=== PATIENT | male | born 1935 | race Caucasian/White ===

== ENCOUNTER 2019-05-01 10:37 | Emergency (ER) | payer MEDICARE, OTHER | END 2019-05-01 14:11 | disposition home or self-care (01) | LOC: ER FS 10:37 ==

== ENCOUNTER 2019-05-14 15:16 | Emergency (ER) | payer MEDICARE ==
[~2019-05-14] VITALS: Ht 177.8 cm; Wt 90.7 kg
[~2019-05-14 15:16] MED LIST: CLOP75TA28; LISI-556; PRAV20TA3; TAMSULOSIN
--- NOTE | 2019-05-14 15:55 | ED Chest Pain ---
General Chief Complaint: Chest Wall Stated Complaint: RIB PAIN, PT FELL Source: patient, family Exam Limitations: no limitations History of Present Illness Date Seen by Provider: May 14, 2019 Time Seen by Provider: 15:51 Initial Comments Patient presents with his and complaining of left-sided chest pain after recent fall. Patient seen in this ER myself on 01 May for similar incident after a fall. Was sent home after workup and given fall precautions. Patient admits he fell again recently landing on his left chest and does have some bruising on his left chest as well and pain in the ribs of this area Allergies and Home Medications Allergies Coded Allergies: No Known Drug Allergies (Unverified , 05/01/19) Patient Home Medication List Home Medication List Reviewed: Yes Review of Systems Review of Systems Constitutional: No dizziness, No fever, No malaise, No weakness Respiratory: Denies Cough, Denies Orthopnea, Denies Shortness of Air, Denies SOA With Exertion, Denies SOA at Rest, Denies Stridor, Denies Wheezing Cardiovascular: Chest Pain (left lower and lateral chest wall); Denies Edema, Denies Lightheadedness, Denies Palpitations, Denies Syncope Musculoskeletal: No back pain, No joint pain, No joint swelling, No muscle pain, No muscle stiffness Skin: see HPI, other (bruising extremities. bruising chest wall left side) Past Ylxayju-Rmpokl-Limflw Hx Patient Social History Type Used: Cigarettes Former Smoker, Quit: Sep 08, 2010 2nd Hand Smoke Exposure: No Recent Foreign Travel: No Contact w/Someone Who Travel: No Recent Hopitalizations: No Seasonal Allergies Seasonal Allergies: No Past Medical History Surgeries: No Respiratory: Yes COPD Cardiac: Yes Hypertension Neurological: Yes Stroke, TIA Genitourinary: Yes Benign Prostatic Hyperpl Gastrointestinal: No Musculoskeletal: No Endocrine: No HEENT: No Cancer: No Psychosocial: No Integumentary: No Physical Exam Vital Signs Vital Signs - First Documented 05/14/19 15:20 Temp 98.2 Pulse 70 Resp 20 B/P (MAP) 194/80 (118) Capillary Refill : Height, Weight, BMI Height: 5'9.00" Weight: 200lbs. oz. [id number]; BMI Method:Stated General Appearance: No Apparent Distress, WD/WN; No Anxious, No Cachetic, No Mild Distress Neck: Full Range of Motion, Normal Inspection, Non Tender, Supple; No JVD Respiratory: Lungs Clear, Normal Breath Sounds; No Respiratory Distress; Other (tenderness left lower lateral chest wall in area of bruising) Cardiovascular: Regular Rate, Rhythm, No Murmur, Normal Peripheral Pulses Gastrointestinal: Non Tender, Soft; No Distended, No Guarding Extremity: Normal Capillary Refill, Normal Inspection, Normal Range of Motion, Non Tender, No Calf Tenderness, No Pedal Edema; No Pedal Edema, No Pelvis Stable Skin: Normal Color, Warm/Dry, Ecchymosis Progress/Results/Core Measures Results/Orders Lab Results Laboratory Tests Test 05/14/19 15:48 Range/Units White Blood Count 7.0 4.3-11.0 10^3/uL Red Blood Count 5.09 4.35-5.85 10^6/uL Hemoglobin 14.8 13.3-17.7 G/DL Hematocrit 46 40-54 % Mean Corpuscular Volume 91 80-99 FL Mean Corpuscular Hemoglobin 29 25-34 PG Mean Corpuscular Hemoglobin Concent 32 32-36 G/DL Red Cell Distribution Width 13.5 10.0-14.5 % Platelet Count 225 130-400 10^3/uL Mean Platelet Volume 9.3 7.4-10.4 FL Neutrophils (%) (Auto) 63 42-75 % Lymphocytes (%) (Auto) 23 12-44 % Monocytes (%) (Auto) 9 0-12 % Eosinophils (%) (Auto) 4 0-10 % Basophils (%) (Auto) 1 0-10 % Neutrophils # (Auto) 4.4 1.8-7.8 X 10^3 Lymphocytes # (Auto) 1.6 1.0-4.0 X 10^3 Monocytes # (Auto) 0.7 0.0-1.0 X 10^3 Eosinophils # (Auto) 0.3 0.0-0.3 10^3/uL Basophils # (Auto) 0.0 0.0-0.1 10^3/uL Sodium Level 140 135-145 MMOL/L Potassium Level 4.1 3.6-5.0 MMOL/L Chloride Level 97 L 98-107 MMOL/L Carbon Dioxide Level 29 21-32 MMOL/L Anion Gap 14 5-14 MMOL/L Blood Urea Nitrogen 10 7-18 MG/DL Creatinine 0.70 0.60-1.30 MG/DL Estimat Glomerular Filtration Rate > 60 BUN/Creatinine Ratio 14 Glucose Level 113 H 70-105 MG/DL Calcium Level 9.4 8.5-10.1 MG/DL Corrected Calcium 9.2 8.5-10.1 MG/DL Total Bilirubin 0.3 0.1-1.0 MG/DL Aspartate Amino Transf (AST/SGOT) 18 5-34 U/L Alanine Aminotransferase (ALT/SGPT) 16 0-55 U/L Alkaline Phosphatase 79 40-136 U/L Troponin I < 0.30 <0.30 NG/ML Total Protein 6.9 6.4-8.2 GM/DL Albumin 4.2 3.2-4.5 GM/DL My Orders Orders - ROVENSTMICHAEL VALLES DO Ed Iv/Invasive Line Start (05/14/19 15:48) Cbc With Automated Diff (05/14/19 15:48) Comprehensive Metabolic Panel (05/14/19 15:48) Troponin I (05/14/19 15:48) Ekg Tracing (05/14/19 15:48) Ct Angio Chest W (05/14/19 15:48) Ns Iv 1000 Ml (Sodium Chloride 0.9%) (05/14/19 16:00) Iohexol Injection (Omnipaque 350 Mg/Ml 1 (05/14/19 16:15) Received Contrast (Hold Metformin- Contr (05/14/19 16:15) Sodium Chloride Flush (Catheter Flush Sy (05/14/19 16:15) Ns (Ivpb) (Sodium Chloride 0.9% Ivpb Bag (05/14/19 16:15) Medications Given in ED Current Medications Medications Dose Ordered Sig/Glenny Route Start Time Stop Time Status Last Admin Dose Admin Iohexol 125 ml ONCE ONCE IV 05/14/19 16:15 05/14/19 16:16 DC 05/14/19 16:29 125 ML Sodium Chloride 10 ml NEEDED PRN IV 05/14/19 16:15 05/14/19 16:29 10 ML Sodium Chloride 100 ml ONCE ONCE IV 05/14/19 16:15 05/14/19 16:16 DC 05/14/19 16:29 100 ML Vital Signs/I&O 05/14/19 15:20 Temp 98.2 Pulse 70 Resp 20 B/P (MAP) 194/80 (118) Initial ECG Impression Date: May 14, 2019 Initial ECG Impression Time: 15:37 Initial ECG Rate: 70 Initial ECG Rhythm: Normal Sinus Initial ECG Intervals: Normal Initial ECG Impression: Normal Departure Impression Primary Impression: Frequent falls Additional Impression: Contusion of rib on left side Qualified Codes: S20.212A - Contusion of left front wall of thorax, initial encounter Disposition: 01 HOME, SELF-CARE Condition: Stable Departure-Patient Inst. Decision time for Depature: 17:11 Referrals: COREY MONACO MD (PCP/Family) Primary Care Physician Patient Instructions: Bruised Rib (DC), Preventing Falls in the Older Adult MICHAEL TATUM DO May 14, 2019 15:55
[2019-05-14] MEDS ORDERED: NS IV 1000 ML 1,000 ML IV SCH (16:00)
[2019-05-14 16:13] LABS: HEMATOCRIT 46 % (40-54); HEMOGLOBIN 14.8 G/DL (13.3-17.7); MEAN CORPUSCULAR HEMOGLOBIN 29 PG (25-34); MEAN CORPUSCULAR HGB CONC 32 G/DL (32-36); MEAN CORPUSCULAR VOLUME 91 FL (80-99); RED CELL DISTRIBUTION WIDTH 13.5 % (10.0-14.5)
[2019-05-14 16:14] LABS: BASOPHILS % (AUTO) 1 % (0-10); EOSINOPHILS # (AUTO) 0.3 10^3/uL (0.0-0.3); EOSINOPHILS % (AUTO) 4 % (0-10); LYMPHOCYTES # (AUTO) 1.6 X 10^3 (1.0-4.0); LYMPHOCYTES % (AUTO) 23 % (12-44); MEAN PLATELET VOLUME 9.3 FL (7.4-10.4); MONOCYTES # (AUTO) 0.7 X 10^3 (0.0-1.0); MONOCYTES % (AUTO) 9 % (0-12); NEUTROPHILS # (AUTO) 4.4 X 10^3 (1.8-7.8); NEUTROPHILS % (AUTO) 63 % (42-75); PLATELET COUNT 225 10^3/uL (130-400)
[2019-05-14] MEDS ORDERED: CATHETER FLUSH 10 ML SYR IV PRN (16:15)
[2019-05-14] MEDS ORDERED: NS 100 ML (IVPB) BAG IV ONE (16:15)
[2019-05-14] MEDS ORDERED: HOLD METFORMIN - RECEIVED CONTRAST 20 ML VIAL IV SCH (16:15)
[2019-05-14] MEDS ORDERED: IOHEXOL 350 MG/ML 150 ML (OMNIPAQUE 350) VIAL IV ONE (16:15)
[2019-05-14 16:24] LABS: CARBON DIOXIDE 29 MMOL/L (21-32); CHLORIDE 97 MMOL/L (98-107); POTASSIUM 4.1 MMOL/L (3.6-5.0); SODIUM 140 MMOL/L (135-145)
[2019-05-14 16:25] LABS: ALANINE AMINOTRANSFERASE 16 U/L (0-55); ALBUMIN 4.2 GM/DL (3.2-4.5); ALKALINE PHOSPHATASE 79 U/L (40-136); BILIRUBIN,TOTAL 0.3 MG/DL (0.1-1.0); BUN/CREATININE RATIO 14; CALCIUM 9.4 MG/DL (8.5-10.1); GFR ESTIMATED > 60; GLUCOSE 113 MG/DL (70-105); TOTAL PROTEIN 6.9 GM/DL (6.4-8.2)
--- NOTE | 2019-05-14 17:06 | Diagnostic Imaging Report ---
PROCEDURE: CT angiography of the chest with contrast. TECHNIQUE: Multiple contiguous axial images were obtained through the chest after uneventful bolus administration of intravenous contrast. 3D reconstructed CTA MIP acquisitions were also performed. Auto Exposure Controls were utilized during the CT exam to meet ALARA standards for radiation dose reduction. INDICATION: Chest pain. Fall. COMPARISON: There are no prior CTA chest examinations available for comparison. Plain film examination of the chest performed on 05/01/2019 failed to show any sign of an acute cardiopulmonary abnormality. FINDINGS: There is no defect within the pulmonary arteries to indicate a pulmonary embolus. The aorta is not abnormally dilated. There is no sign of a dissection. The heart size is within normal limits. There are no definite coronary artery calcifications noted. There is no mediastinal or hilar adenopathy. The thyroid gland is generally unremarkable. There are chronic pulmonary changes evident but there is no sign of failure, pneumonia or pleural effusion to indicate an acute abnormality. There is a small 6.2 mm noncalcified parenchymal opacity in the anterior aspect of the right midlung. This finding is of uncertain etiology. It is unlikely that this is neoplastic in nature but even so, a short-term (6 month) followup CT chest exam would be recommended for further evaluation. The sections through the upper abdomen show several calculi within the neck of the gallbladder. There is no sign of acute cholecystitis however. The reconstructed parasagittal images reveal a marked 80-90% compression fracture of L1. This appears to be longstanding in nature. There is no acute bony abnormality noted otherwise. IMPRESSION: 1. There is no evidence for an acute cardiopulmonary abnormality. In particular, there is no sign of a pulmonary embolus or of a dissection. 2. The small nodular density in the anterior aspect of the right midlung is of uncertain etiology although most likely benign. Recommendations as above. 3. Cholelithiasis without evidence for acute cholecystitis. 4. 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 Dictated by: Dictated on workstation # [id number]
[2019-05-14 17:53] VITALS: BP 190/106
== END 2019-05-14 17:40 | disposition home or self-care (01) ==
LOC: EDUNIT# 15:16 → ER FS 15:17
DX: S20.212A Contusion of left front wall of thorax, initial encounter (principal); R29.6 Repeated falls; J44.9 Chronic obstructive pulmonary disease, unspecified; I10 Essential (primary) hypertension; N40.0 Benign prostatic hyperplasia without lower urinary tract symptoms; Z86.73 Personal history of transient ischemic attack (TIA), and cerebral infarction without residual deficits; Z87.891 Personal history of nicotine dependence; W19.XXXA Unspecified fall, initial encounter
CPT/HCPCS: 36415; 71275; 80053; 84484; 85025; 93005; 96360

== ENCOUNTER 2021-02-12 06:31 | Inpatient (IN) | payer MEDICARE ==
[~2021-02-12] VITALS: Ht 177 cm; Wt 82.0 kg
[~2021-02-12 06:31] MED LIST changes: -CLOP75TA28; +CLOP75TA28 PO; -LISI-556; +LISI-729 PO; -PRAV20TA3; +PRAV20TA3 PO
--- NOTE | 2021-02-12 06:54 | ED General ---
General Chief Complaint: Dizziness/Syncope Stated Complaint: GENERAL WEAKNESS Nursing Triage Note: Pt brought in by ems with complaints of dizziness that started yesterday Nursing Sepsis Screen: No Definite Risk History of Present Illness Date Seen by Provider: Feb 12, 2021 Time Seen by Provider: 06:54 Initial Comments 85 yo male pressents with dizziness. pt and family reports that he has been weak for a couple days. pt states that he has been dizzy on/off for a couple days. pt has some lower abd bloating. very tearful. no other complaints. Allergies and Home Medications Allergies Coded Allergies: No Known Drug Allergies (Unverified , 05/01/19) Patient Home Medication List Home Medication List Reviewed: Yes Review of Systems Review of Systems Constitutional: No chills; dizziness; No fever Respiratory: No cough, No short of breath Cardiovascular: No chest pain, No palpitations Gastrointestinal: No abdominal pain, No nausea, No vomiting Musculoskeletal: no symptoms reported Skin: no symptoms reported Psychiatric/Neurological: See HPI Hematologic/Lymphatic: No Symptoms Reported Immunological/Allergic: no symptoms reported Past Llxmmru-Gbboyy-Zschew Hx Past Med/Social Hx: Reviewed Nursing Past Med/Soc Hx Patient Social History Alcohol Use: Denies Use Smoking Status: Former Smoker Type Used: Cigarettes Former Smoker, Quit: Sep 08, 2010 2nd Hand Smoke Exposure: No Recent Infectious Disease Expo: No Recent Hopitalizations: No Seasonal Allergies Seasonal Allergies: No Past Medical History Surgeries: Yes (cataracts) Respiratory: Yes COPD Cardiac: Yes Hypertension Neurological: Yes ([place] palsey) Stroke, TIA Genitourinary: Yes Benign Prostatic Hyperpl Gastrointestinal: No Musculoskeletal: Yes Arthritis, Back Injury Endocrine: No HEENT: No Cancer: No Psychosocial: No Integumentary: No Physical Exam Vital Signs Vital Signs - First Documented 02/12/21 06:32 Temp 37.8 Pulse 80 Resp 18 B/P (MAP) 163/73 (103) Pulse Ox 97 O2 Delivery Room Air Capillary Refill : Less Than 3 Seconds Height, Weight, BMI Height: 5'10.00" Weight: 200lbs. oz. 90.125074pm; BMI Method:Stated General Appearance: No Apparent Distress, Other (tearful ) Respiratory: Lungs Clear, Normal Breath Sounds Cardiovascular: Regular Rate, Rhythm, No Edema Gastrointestinal: Non Tender, Soft Extremity: Normal Capillary Refill Neurologic/Psychiatric: Alert, Normal Mood/Affect, larriman helper II-XII Norm as Tested, Other (tearful) Focused Exam Lactate Level 02/12/21 06:38: Lactic Acid Level 1.34 Lactic Acid Level Laboratory Tests Test 02/12/21 06:38 Lactic Acid Level 1.34 MMOL/L (0.50-2.00) Progress/Results/Core Measures Suspected Sepsis Recent Fever Within 48 Hours: No Infection Criteria Present: None New/Unexplained Altered Menta: No Sepsis Screen: No Definite Risk SIRS Temperature: Pulse: 80 Respiratory Rate: 18 Laboratory Tests 02/12/21 06:38: White Blood Count 21.6H Blood Pressure 163 /73 Mean: 103 02/12/21 06:38: Lactic Acid Level 1.34 Laboratory Tests 02/12/21 06:38: Creatinine 0.76, Platelet Count 179, Total Bilirubin 1.3H Results/Orders Lab Results Laboratory Tests Test 02/12/21 06:38 02/12/21 07:06 Range/Units White Blood Count 21.6 H 4.3-11.0 10^3/uL Red Blood Count 4.91 4.35-5.85 10^6/uL Hemoglobin 14.3 13.3-17.7 G/DL Hematocrit 44 40-54 % Mean Corpuscular Volume 89 80-99 FL Mean Corpuscular Hemoglobin 29 25-34 PG Mean Corpuscular Hemoglobin Concent 33 32-36 G/DL Red Cell Distribution Width 13.6 10.0-14.5 % Platelet Count 179 130-400 10^3/uL Mean Platelet Volume 10.2 7.4-10.4 FL Immature Granulocyte % (Auto) 1 % Neutrophils (%) (Auto) 86 H 42-75 % Lymphocytes (%) (Auto) 7 L 12-44 % Monocytes (%) (Auto) 6 0-12 % Eosinophils (%) (Auto) 0 0-10 % Basophils (%) (Auto) 0 0-10 % Neutrophils # (Auto) 18.5 H 1.8-7.8 X 10^3 Lymphocytes # (Auto) 1.5 1.0-4.0 X 10^3 Monocytes # (Auto) 1.4 H 0.0-1.0 X 10^3 Eosinophils # (Auto) 0.0 0.0-0.3 10^3/uL Basophils # (Auto) 0.1 0.0-0.1 10^3/uL Immature Granulocyte # (Auto) 0.2 H 0.0-0.1 10^3/uL Neutrophils % (Manual) 85 % Lymphocytes % (Manual) 6 % Monocytes % (Manual) 6 % Eosinophils % (Manual) 0 % Basophils % (Manual) 1 % Band Neutrophils 2 % Sodium Level 138 135-145 MMOL/L Potassium Level 4.0 3.6-5.0 MMOL/L Chloride Level 102 98-107 MMOL/L Carbon Dioxide Level 23 21-32 MMOL/L Anion Gap 13 5-14 MMOL/L Blood Urea Nitrogen 14 7-18 MG/DL Creatinine 0.76 0.60-1.30 MG/DL Estimat Glomerular Filtration Rate > 60 BUN/Creatinine Ratio 18 Glucose Level 125 H 70-105 MG/DL Lactic Acid Level 1.34 0.50-2.00 MMOL/L Calcium Level 8.9 8.5-10.1 MG/DL Corrected Calcium 9.3 8.5-10.1 MG/DL Total Bilirubin 1.3 H 0.1-1.0 MG/DL Aspartate Amino Transf (AST/SGOT) 19 5-34 U/L Alanine Aminotransferase (ALT/SGPT) 7 0-55 U/L Alkaline Phosphatase 71 40-136 U/L Total Protein 6.5 6.4-8.2 GM/DL Albumin 3.5 3.2-4.5 GM/DL Serum Alcohol < 10 <10 MG/DL Urine Color DARK YELLOW Urine Clarity CLOUDY Urine pH 6.0 5-9 Urine Specific [place] >=1.030 1.016-1.022 Urine Protein TRACE H NEGATIVE Urine Glucose (UA) NEGATIVE NEGATIVE Urine Ketones 3+ H NEGATIVE Urine Nitrite POSITIVE H NEGATIVE Urine Bilirubin NEGATIVE NEGATIVE Urine Urobilinogen 0.2 < = 1.0 MG/DL Urine Leukocyte Esterase 1+ H NEGATIVE Urine RBC (Auto) TRACE H NEGATIVE Urine RBC NONE /HPF Urine WBC 25-50 H /HPF Urine Squamous Epithelial Cells 0-2 /HPF Urine Crystals NONE /LPF Urine Bacteria LARGE H /HPF Urine Casts NONE /LPF Urine Mucus MODERATE H /LPF Urine Culture Indicated YES My Orders Orders - CARMEN,BEBETO L DO Alcohol (02/12/21 06:54) Cbc With Automated Diff (02/12/21 06:54) Comprehensive Metabolic Panel (02/12/21 06:54) Lactic Acid Analyzer (02/12/21 06:54) Ua Culture If Indicated (02/12/21 06:54) Blood Culture (02/12/21 06:54) Ct Head Wo (02/12/21 06:54) Manual Differential (02/12/21 06:38) Ceftriaxone For Iv Use (Rocephin For I (02/12/21 07:43) Ns Iv 1000 Ml (Sodium Chloride 0.9%) (02/12/21 07:43) Urine Culture (02/12/21 07:06) Vital Signs/I&O 02/12/21 06:32 Temp 37.8 Pulse 80 Resp 18 B/P (MAP) 163/73 (103) Pulse Ox 97 O2 Delivery Room Air Capillary Refill : Less Than 3 Seconds Blood Pressure Mean: 103 Diagnostic Imaging Diagonstic Imaging: CT Plain Films/CT/US/NM/MRI: head Comments Date of Exam:02/12/21 CT HEAD WO PROCEDURE: CT head without contrast. TECHNIQUE: Multiple contiguous axial images were obtained through the brain without the use of intravenous contrast. Auto Exposure Controls were utilized during the CT exam to meet ALARA standards for radiation dose reduction. INDICATION: Dizziness. COMPARISON: None. FINDINGS: Advanced generalized cerebral and cerebellar parenchymal volume loss. Advanced leukoaraiosis. Chronic appearing infarcts in the basal ganglia bilaterally and right occipital lobe. No intracranial hemorrhage, mass effect, hydrocephalus or extra-axial fluid collections. Mucosal thickening in the ethmoid and left maxillary sinus. The mastoids are clear. Osseous structures are intact. IMPRESSION: 1. Advanced volume loss and leukoaraiosis. 2. Multiple lacunar infarcts in the basal ganglia and right occipital lobe are likely chronic but technically age indeterminate. This could be further investigated with MRI. 3. No intracranial hemorrhage. Departure Communication (Admissions) Time/Spoke to Admitting Phy: 07:59 Impression Primary Impression: Urinary tract infection Qualified Codes: N30.01 - Acute cystitis with hematuria Disposition: 30 STILL A PATIENT Condition: Stable Admissions Decision to Admit Reason: Admit from ER (General) Decision to Admit/Date: Feb 12, 2021 Time/Decision to Admit Time: 07:59 Departure-Patient Inst. Referrals: COREY MONACO MD (PCP/Family) Primary Care Physician BEBETO CARMEN DO Feb 12, 2021 06:54
[2021-02-12 07:15] LABS: HEMATOCRIT 44 % (40-54); HEMOGLOBIN 14.3 G/DL (13.3-17.7); MEAN CORPUSCULAR HEMOGLOBIN 29 PG (25-34); MEAN CORPUSCULAR HGB CONC 33 G/DL (32-36); MEAN CORPUSCULAR VOLUME 89 FL (80-99); MEAN PLATELET VOLUME 10.2 FL (7.4-10.4); PLATELET COUNT 179 10^3/uL (130-400); WHITE BLOOD COUNT 21.6 10^3/uL (4.3-11.0)
[2021-02-12 07:16] LABS: BASOPHILS # (AUTO) 0.1 10^3/uL (0.0-0.1); BASOPHILS % (AUTO) 0 % (0-10); EOSINOPHILS % (AUTO) 0 % (0-10); LYMPHOCYTES # (AUTO) 1.5 X 10^3 (1.0-4.0); LYMPHOCYTES % (AUTO) 7 % (12-44); MONOCYTES # (AUTO) 1.4 X 10^3 (0.0-1.0); MONOCYTES % (AUTO) 6 % (0-12); NEUTROPHILS # (AUTO) 18.5 X 10^3 (1.8-7.8); NEUTROPHILS % (AUTO) 86 % (42-75)
--- NOTE | 2021-02-12 07:24 | Diagnostic Imaging Report ---
PROCEDURE: CT head without contrast. TECHNIQUE: Multiple contiguous axial images were obtained through the brain without the use of intravenous contrast. Auto Exposure Controls were utilized during the CT exam to meet ALARA standards for radiation dose reduction. INDICATION: Dizziness. COMPARISON: None. FINDINGS: Advanced generalized cerebral and cerebellar parenchymal volume loss. Advanced leukoaraiosis. Chronic appearing infarcts in the basal ganglia bilaterally and right occipital lobe. No intracranial hemorrhage, mass effect, hydrocephalus or extra-axial fluid collections. Mucosal thickening in the ethmoid and left maxillary sinus. The mastoids are clear. Osseous structures are intact. IMPRESSION: 1. Advanced volume loss and leukoaraiosis. 2. Multiple lacunar infarcts in the basal ganglia and right occipital lobe are likely chronic but technically age indeterminate. This could be further investigated with MRI. 3. No intracranial hemorrhage. Dictated by: Dictated on workstation # [id number]
[2021-02-12 07:37] LABS: ALANINE AMINOTRANSFERASE 7 U/L (0-55); ALBUMIN 3.5 GM/DL (3.2-4.5); ALKALINE PHOSPHATASE 71 U/L (40-136); BILIRUBIN,TOTAL 1.3 MG/DL (0.1-1.0); BUN/CREATININE RATIO 18; CALCIUM 8.9 MG/DL (8.5-10.1); CARBON DIOXIDE 23 MMOL/L (21-32); CHLORIDE 102 MMOL/L (98-107); CREATININE SERUM 0.76 MG/DL (0.60-1.30); GFR ESTIMATED > 60; GLUCOSE 125 MG/DL (70-105); SODIUM 138 MMOL/L (135-145); TOTAL PROTEIN 6.5 GM/DL (6.4-8.2)
[2021-02-12 07:43] LABS: BACTERIA,URINE LARGE /HPF; BILIRUBIN,URINE NEGATIVE (NEGATIVE); CLARITY,URINE CLOUDY; COLOR,URINE DARK YELLOW; GLUCOSE, URINE (UA) NEGATIVE (NEGATIVE); KETONES,URINE 3+ (NEGATIVE); LEUKOCYTE ESTERASE ,URINE 1+ (NEGATIVE); NITRITE,URINE POSITIVE (NEGATIVE); PROTEIN,URINE TRACE (NEGATIVE); SQUAMOUS EPITHELIAL CELL,UR 0-2 /HPF; WBC,URINE 25-50 /HPF
[2021-02-12] MEDS ORDERED: cefTRIAXone 1,000 MG in WATER (STERILE) FOR INJECTION 10 ML IV STA (07:43)
[2021-02-12] MEDS ORDERED: NS IV 1000 ML 1,000 ML IV STA (07:43)
[2021-02-12 07:56] LABS: BAND NEUTROPHILS 2 %; BASOPHILS % (MANUAL) 1 %; EOSINOPHILS % (MANUAL) 0 %; LYMPHOCYTES % (MANUAL) 6 %; MONOCYTES % (MANUAL) 6 %; NEUTROPHILS % (MANUAL) 85 %
[2021-02-12 09:58] VITALS: BP 166/73
[2021-02-12] MEDS: NS IV 1000 ML 1,000 ML IV SCH (10:36)
[2021-02-12] MEDS ORDERED: ACETAMINOPHEN 500 MG TAB (TYLENOL) PO PRN (12:00)
[2021-02-12] MEDS ORDERED: THIA100T68 PO (12:19)
[2021-02-12] MEDS ORDERED: CALC-408 PO (12:19)
[2021-02-12] MEDS ORDERED: ACET-2650 PO (12:19)
[2021-02-12] MEDS ORDERED: OMEG1CAP24 PO (12:19)
[2021-02-12] MEDS ORDERED: ASCO500C17 PO (12:19)
[2021-02-12] MEDS ORDERED: GARL1TAB2 PO (12:19)
[2021-02-12] MEDS ORDERED: TMSL.4C PO (12:19)
[2021-02-12] MEDS ORDERED: ESOM40CA52 PO (12:19)
[2021-02-12 12:27] VITALS: BP 141/64
[2021-02-12 16:00] VITALS: BP 136/57
--- NOTE | 2021-02-12 16:04 | History & Physical ---
HPI History of Present Illness: 85 yo M that presented with confusion and some abdominal pain. States that he started feeling different last night. States that he has been getting up 5-10 times the last few days during the night to urinate. This is abnormal for him and he states that he generally has to urinate 2-3 times per night. Denies any fever or chills. No previous UTI. Source: patient Exam Limitations: no limitations Date seen by provider: Feb 12, 2021 Time Seen by Provider: 11:15 Attending Physician Rhona Whitney MD PCP Dr Crockett Self Consult Date of Admission Feb 12, 2021 at 09:44 Home Medications Home Medications Reviewed patient Home Medication Reconciliation performed by pharmacy medication reconciliations refrigerating technician and/or nursing. Patients Allergies have been reviewed. Allergies Coded Allergies: No Known Drug Allergies (Unverified , 02/12/21) IBY-Hobzpi-Xganqp Hx Patient Social History Smoking Status: Former Smoker 2nd Hand Smoke Exposure: No Recent Hopitalizations: No Alcohol Use?: No Have you traveled recently?: No Past Medical History HTN HLD BPH Review of Systems ([facility]) Constitutional: chills; No fever; malaise EENTM: no symptoms reported Respiratory: no symptoms reported; No cough, No dyspnea on exertion, No short of breath Cardiovascular: no symptoms reported; No chest pain, No edema, No palpitations Gastrointestinal: abdominal pain; No constipation, No nausea, No vomiting Genitourinary: frequency; No hematuria; hesitancy, incontinence Musculoskeletal: no symptoms reported; No back pain, No joint pain, No muscle pain Skin: no symptoms reported; No lesions, No rash Psychiatric/Neurological: Weakness Reviewed Test Results Reviewed Test Results Lab Laboratory Tests Test 02/12/21 06:38 02/12/21 07:06 Range/Units White Blood Count 21.6 H 4.3-11.0 10^3/uL Red Blood Count 4.91 4.35-5.85 10^6/uL Hemoglobin 14.3 13.3-17.7 G/DL Hematocrit 44 40-54 % Mean Corpuscular Volume 89 80-99 FL Mean Corpuscular Hemoglobin 29 25-34 PG Mean Corpuscular Hemoglobin Concent 33 32-36 G/DL Red Cell Distribution Width 13.6 10.0-14.5 % Platelet Count 179 130-400 10^3/uL Mean Platelet Volume 10.2 7.4-10.4 FL Immature Granulocyte % (Auto) 1 % Neutrophils (%) (Auto) 86 H 42-75 % Lymphocytes (%) (Auto) 7 L 12-44 % Monocytes (%) (Auto) 6 0-12 % Eosinophils (%) (Auto) 0 0-10 % Basophils (%) (Auto) 0 0-10 % Neutrophils # (Auto) 18.5 H 1.8-7.8 X 10^3 Lymphocytes # (Auto) 1.5 1.0-4.0 X 10^3 Monocytes # (Auto) 1.4 H 0.0-1.0 X 10^3 Eosinophils # (Auto) 0.0 0.0-0.3 10^3/uL Basophils # (Auto) 0.1 0.0-0.1 10^3/uL Immature Granulocyte # (Auto) 0.2 H 0.0-0.1 10^3/uL Neutrophils % (Manual) 85 % Lymphocytes % (Manual) 6 % Monocytes % (Manual) 6 % Eosinophils % (Manual) 0 % Basophils % (Manual) 1 % Band Neutrophils 2 % Sodium Level 138 135-145 MMOL/L Potassium Level 4.0 3.6-5.0 MMOL/L Chloride Level 102 98-107 MMOL/L Carbon Dioxide Level 23 21-32 MMOL/L Anion Gap 13 5-14 MMOL/L Blood Urea Nitrogen 14 7-18 MG/DL Creatinine 0.76 0.60-1.30 MG/DL Estimat Glomerular Filtration Rate > 60 BUN/Creatinine Ratio 18 Glucose Level 125 H 70-105 MG/DL Lactic Acid Level 1.34 0.50-2.00 MMOL/L Calcium Level 8.9 8.5-10.1 MG/DL Corrected Calcium 9.3 8.5-10.1 MG/DL Total Bilirubin 1.3 H 0.1-1.0 MG/DL Aspartate Amino Transf (AST/SGOT) 19 5-34 U/L Alanine Aminotransferase (ALT/SGPT) 7 0-55 U/L Alkaline Phosphatase 71 40-136 U/L Total Protein 6.5 6.4-8.2 GM/DL Albumin 3.5 3.2-4.5 GM/DL Serum Alcohol < 10 <10 MG/DL Urine Color DARK YELLOW Urine Clarity CLOUDY Urine pH 6.0 5-9 Urine Specific [place] >=1.030 1.016-1.022 Urine Protein TRACE H NEGATIVE Urine Glucose (UA) NEGATIVE NEGATIVE Urine Ketones 3+ H NEGATIVE Urine Nitrite POSITIVE H NEGATIVE Urine Bilirubin NEGATIVE NEGATIVE Urine Urobilinogen 0.2 < = 1.0 MG/DL Urine Leukocyte Esterase 1+ H NEGATIVE Urine RBC (Auto) TRACE H NEGATIVE Urine RBC NONE /HPF Urine WBC 25-50 H /HPF Urine Squamous Epithelial Cells 0-2 /HPF Urine Crystals NONE /LPF Urine Bacteria LARGE H /HPF Urine Casts NONE /LPF Urine Mucus MODERATE H /LPF Urine Culture Indicated YES Physical Exam-([facility]) Physical Exam Vital Signs VS - Last 72 Hours, by Label 02/12/21 02/12/21 02/12/21 02/12/21 06:32 08:55 09:58 10:00 Temp 37.8 37.4 38.3 Pulse 80 71 88 Resp 18 20 24 B/P (MAP) 163/73 (103) 186/54 (103) 166/73 (104) Pulse Ox 97 98 98 O2 Delivery Room Air Room Air Room Air Room Air 02/12/21 12:27 Temp 37.5 Pulse 72 Resp 24 B/P (MAP) 141/64 (89) Pulse Ox 94 O2 Delivery Room Air Capillary Refill : Less Than 3 Seconds General Appearance: WD/WN, no apparent distress, thin (Elderly male) Neck: non-tender, full range of motion, supple Respiratory: chest non-tender, lungs clear, normal breath sounds, no respiratory distress, no accessory muscle use Cardiovascular: normal peripheral pulses, regular rate, rhythm, no edema, no murmur Gastrointestinal: normal bowel sounds, non tender, soft, tenderness (mild suprapubic abdominal pain) Back: no CVA tenderness, no vertebral tenderness Extremities: normal range of motion, non-tender, no pedal edema, no calf tenderness, normal capillary refill Neurologic/Psychiatric: laundry machine operator II-XII nml as tested, no motor/sensory deficits, alert, normal mood/affect, oriented x 3 Skin: normal color, warm/dry Lymphatic: no adenopathy Assessment/Plan Assessment/Plan Admission Status: Inpatient Order (span 2 midnights) Reason for Inpatient Admission: sepsis requiring IVFs and IV antibiotics (1) Sepsis Status: Acute Assessment & Plan: - IVFs, Rocephin, continue to monitor VS Qualifiers: Qualified Codes: A41.9 - Sepsis, unspecified organism (2) Altered mental status Status: Acute Assessment & Plan: - Seems to be closer to baseline this AM after transfer, Normal CT done in ER Qualifiers: Qualified Codes: R41.82 - Altered mental status, unspecified (3) Urinary tract infection Status: Acute Assessment & Plan: - Continue Rocephin daily Qualifiers: Qualified Codes: N30.01 - Acute cystitis with hematuria (4) BPH (benign prostatic hyperplasia) Status: Chronic Assessment & Plan: - Will get bladder scan, post void Qualifiers: Qualified Codes: N40.1 - Benign prostatic hyperplasia with lower urinary tract symptoms; R35.0 - Frequency of micturition (5) HTN (hypertension) Status: Chronic Assessment & Plan: - Continue home meds Qualifiers: Qualified Codes: I10 - Essential (primary) hypertension (6) Debility Status: Acute Assessment & Plan: - PT ordered RHONA WHITNEY MD Feb 12, 2021 16:04
[2021-02-12] MEDS: ENOXAPARIN 40 MG/0.4 ML (LOVENOX) SYR SQ SCH (17:49)
[2021-02-12] MEDS: TAMSULOSIN 0.4 MG (FLOMAX) CAP PO SCH (19:32)
[2021-02-12] MEDS: SIMvastatin 10 MG (ZOCOR) TAB PO SCH (19:32)
[2021-02-12 20:00] VITALS: BP 145/65
[2021-02-13 00:59] VITALS: BP 125/60
[2021-02-13] MEDS: NS IV 1000 ML 1,000 ML IV SCH ×4 (01:06→20:58)
[2021-02-13 04:27] VITALS: BP 154/69
[2021-02-13 05:30] LABS: BASOPHILS % (AUTO) 0 % (0-10); EOSINOPHILS % (AUTO) 0 % (0-10); HEMATOCRIT 42 % (40-54); HEMOGLOBIN 13.7 g/dL (13.3-17.7); LYMPHOCYTES # (AUTO) 1.3 10^3/uL (1.0-4.0); LYMPHOCYTES % (AUTO) 6 % (12-44); MEAN CORPUSCULAR HEMOGLOBIN 29 pg (25-34); MEAN CORPUSCULAR HGB CONC 33 g/dL (32-36); MEAN CORPUSCULAR VOLUME 91 fL (80-99); MEAN PLATELET VOLUME 10.6 fL (9.0-12.2); MONOCYTES # (AUTO) 1.4 10^3/uL (0.0-1.0); MONOCYTES % (AUTO) 7 % (0-12); NEUTROPHILS # (AUTO) 17.4 10^3/uL (1.8-7.8); NEUTROPHILS % (AUTO) 86 % (42-75); PLATELET COUNT 171 10^3/uL (130-400); WHITE BLOOD COUNT 20.2 10^3/uL (4.3-11.0)
[2021-02-13 05:49] LABS: ALANINE AMINOTRANSFERASE 16 U/L (0-55); ALBUMIN 3.2 GM/DL (3.2-4.5); ALKALINE PHOSPHATASE 66 U/L (40-136); BILIRUBIN,TOTAL 0.8 MG/DL (0.1-1.0); BUN/CREATININE RATIO 16; CALCIUM 8.4 MG/DL (8.5-10.1); CARBON DIOXIDE 25 MMOL/L (21-32); CHLORIDE 107 MMOL/L (98-107); CREATININE SERUM 0.67 MG/DL (0.60-1.30); GFR ESTIMATED > 60; GLUCOSE 123 MG/DL (70-105); POTASSIUM 3.6 MMOL/L (3.6-5.0); SODIUM 140 MMOL/L (135-145); TOTAL PROTEIN 5.9 GM/DL (6.4-8.2)
[2021-02-13 07:40] VITALS: BP 159/74
[2021-02-13] MEDS: cefTRIAXone 1,000 MG/SWFI 10 ML IV PUSH IV SCH ×2 (09:07)
[2021-02-13] MEDS: CLOPIDOGREL 75 MG (PLAVIX) TABLET PO SCH (09:08)
[2021-02-13] MEDS: PANTOPRAZOLE 40 MG (PROTONIX) TAB PO SCH (09:08)
[2021-02-13] MEDS ORDERED: PROMETHAZINE INJ 25 MG/ML (PHENERGAN) AMP IVP PRN (09:15)
[2021-02-13] MEDS ORDERED: ONDANSETRON 4 MG/2 ML (SDV) Z0FRAN IVP PRN (09:15)
--- NOTE | 2021-02-13 10:08 | Physical Therapy Evaluation ---
PT Evaluation-General Medical Diagnosis Admission Date Feb 12, 2021 at 09:44 Medical Diagnosis: UTI/weakness Onset Date: Feb 12, 2021 Therapy Diagnosis Therapy Diagnosis: debility/weakness Height/Weight Height (Feet): 5 Height (Inches): 10.00 Weight (Pounds): 200 Precautions Precautions/Isolations: Fall Prevention, Standard Precautions Referral Physician: Chelo Reason for Referral: Evaluation/Treatment Medical History Pertinent Medical History: COPD, CVA, HTN Current History WE secondary to weakness/dizziness Reviewed History: Yes Social History Home: Single Level Current Living Status: Other Family Prior Prior Level of Function SCALE: Activities may be completed with or without assistive devices. 3-Nwkehjnrek-kofrprm completes the activity by him/herself with no assistance from a helper. 5-Set-up or Clean-up Assistance-helper sets up or cleans up; patient completes activity. Hornick assists only prior to or following the activity. 4-Supervision or Touching Assistance-helper provides verbal cues and/or touching/steadying and/or contact guard assistance as patient completes activity. Assistance may be provided throughout the activity or intermittently. 3-Partial/Moderate Assistance-helper does LESS THAN HALF the effort. Hornick lifts, holds or supports trunk or limbs, but provides less than half the effort. 2-Substantial/Maximal Assistance-helper does MORE THAN HALF the effort. Hornick lifts or holds trunk or limbs and provides more than half the effort. 2-Ocbkjcmmm-ocdhhq does ALL the effort. Patient does none of the effort to complete the activity. Or, the assistance of 2 or more helpers is required for the patient to complete the activity. If activity was not attempted, code reason: 7-Patient Refused. 9-Not Applicable-not attempted and the patient did not perform the activity before the current illness, exacerbation or injury. 10-Not Attempted due to Environmental Limitations-(lack of equipment, weather restraints, etc.). 88-Not Attempted due to Medical Conditions or Safety Concerns. Bed Mobility: 6 Transfers (B,C,W/C): 6 Gait: 6 Indoor Mobility (Ambulation): Independent Prior Devices Use: Walker PT Evaluation-Current Subjective Patient agrees to PT. Objective Patient Orientation: Person, Time, Situation ROM/Strength ROM Lower Extremities bilateral LE WFL Strength Lower Extremities 4-/5 grossly bilateral LE Integumentary/Posture Integumentary refer to nursing notes Bladder Incontinence: Yes Posture kyphotic/trunk flexed posture Neuromuscular (Tone, Coordination, Reflexes) grossly intact Sensory Vision: Functional Hearing: Impaired Transfers Roll Left to Right (QC): 4 Sit to Lying (QC): 4 Lying to Sitting/Side of Bed(Q: 4 Sit to Stand (QC): 4 Chair/Fbo-bg-Cqned Xfer(QC): 4 Gait Does the Patient Walk?: Yes Mode of Locomotion: Walk Anticipated Mode of Locomotion: Walk Walk 10 feet (QC): 4 Walk 50 ft with 2 Turns(QC): 4 Walk 150 ft (QC): 4 Distance: 275' Gait Assistive Device: FWW Comments/Gait Description functional gait sequence Balance Sitting Static: Normal Sitting Dynamic: Normal Standing Static: Good Standing Dynamic: Good Assessment/Needs 85 y.o. male, will benefit from skilled PT to address functional strength and mobility to improve current LOF to safely return to home or care facility at maximum LOF. Rehab Potential: Fair PT Configuration Management Architect Goals Penitentiary Goals PT Penitentiary Goals Time Frame: Feb 24, 2021 Roll Left & Right (QC): 5 Sit to Lying (QC): 5 Lying-Sitting on Side/Bed(QC): 5 Sit to Stand (QC): 5 Chair/Pzp-qq-Ikcwq Xfer(QC): 5 Toilet Transfer (QC): 5 Does the Patient Walk: Yes Walk 10 feet (QC): 5 Walk 50ft with 2 Turns (QC): 5 Walk 150 ft (QC): 5 PT Plan Problem List Problem List: Activity Tolerance, Functional Strength, Safety, Gait Treatment/Plan Treatment Plan: Continue Plan of Care Treatment Plan: Bed Mobility, Education, Functional Activity Oscar, Functional Strength, Gait, Safety, Therapeutic Exercise, Transfers Treatment Duration: Feb 24, 2021 Frequency: 6 times per week Estimated Hrs Per Day: .25 hour per day Patient and/or Family Agrees t: Yes Time/GCodes Time In: 820 Time Out: 838 Total Billed Treatment Time: 18 Total Billed Treatment 1 visit EVModC 18 min JAKE CARVALHO PT Feb 13, 2021 10:08
[2021-02-13 11:50] VITALS: BP 154/57
--- NOTE | 2021-02-13 12:08 | Progress Note ---
Subjective Subjective/Events-last exam Patient had some episodes of vomiting after taking his morning medications. States that he is feeling better now and has eaten some of his breakfast. Denies any chest pain or shortness of breath. Patient is tearful and states that he does not feel like he is going to make it out of the hospital. Tolerating PO d iet and ambulated well with PT this AM. Review of Systems Pulmonary: No Dyspnea, No Cough Cardiovascular: No: Chest Pain, Palpitations Gastrointestinal: Nausea, Vomiting, Abdominal Pain Genitourinary: Frequency, Incontinence; No Hematuria Neurological: Weakness, Incoordination Focused Exam Lactate Level 02/12/21 06:38: Lactic Acid Level 1.34 Objective Exam Last Set of Vital Signs Vital Signs Date Time Temp Pulse Resp B/P (MAP) Pulse Ox O2 Delivery O2 Flow Rate FiO2 02/13/21 11:50 36.7 66 22 154/57 (89) 94 Room Air Capillary Refill : Less Than 3 Seconds I&O Intake and Output 02/13/21 00:00 Intake Total 1950 ml Output Total 200 ml Balance 1750 ml Intake Oral 950 ml IV Total 1000 ml Output Urine Total 200 ml Bladder Scan Volume Amount 239 ml # Urine Diapers 2 # Emeses 3 Daily Weight Change Unsure General: Alert, Oriented X3, No Acute Distress Lungs: Clear to Auscultation, Normal Air Movement Heart: Regular Rate, No Murmurs Abdomen: Normal Bowel Sounds, Soft, No Masses, Other (mild suprapubic pain, no rebound or guarding) Extremities: No Edema, No Tenderness/Swelling Skin: No Rashes, No Breakdown Neuro: Strength at 5/5 X4 Ext, Sensation Intact, Cranial Nerves 3-12 NL Psych/Mental Status: Other (depressed affect and tearful, states that he wants to be with his ) Results/Procedures Lab Laboratory Tests 02/13/21 05:04: White Blood Count 20.2H, Red Blood Count 4.66, Hemoglobin 13.7, Hematocrit 42, Mean Corpuscular Volume 91, Mean Corpuscular Hemoglobin 29, Mean Corpuscular Hemoglobin Concent 33, Red Cell Distribution Width 13.4, Platelet Count 171, Mean Platelet Volume 10.6, Immature Granulocyte % (Auto) 1, Neutrophils (%) (Auto) 86H, Lymphocytes (%) (Auto) 6L, Monocytes (%) (Auto) 7, Eosinophils (%) (Auto) 0, Basophils (%) (Auto) 0, Neutrophils # (Auto) 17.4H, Lymphocytes # (Auto) 1.3, Monocytes # (Auto) 1.4H, Eosinophils # (Auto) 0.0, Basophils # (Auto) 0.0, Immature Granulocyte # (Auto) 0.1, Sodium Level 140, Potassium Level 3.6, Chloride Level 107, Carbon Dioxide Level 25, Anion Gap 8, Blood Urea Nitrogen 11, Creatinine 0.67, Estimat Glomerular Filtration Rate > 60, BUN/Creatinine Ratio 16, Glucose Level 123H, Calcium Level 8.4L, Corrected Calcium 9.0, Total Bilirubin 0.8, Aspartate Amino Transf (AST/SGOT) 38H, Alanine Aminotransferase (ALT/SGPT) 16, Alkaline Phosphatase 66, Total Protein 5.9L, Albumin 3.2 Microbiology 02/12/21 Urine Culture - Preliminary, Resulted Escherichia coli 02/12/21 Blood Culture - Preliminary, Resulted Gram Positive Cocci Assessment/Plan Assessment/Plan (1) Sepsis Status: Acute Assessment & Plan: - IVFs, Rocephin, continue to monitor VS 02/13: Patient still has moderate leukocytosis, continue IV antibiotics, will continue to monitor Qualifiers: Qualified Codes: A41.9 - Sepsis, unspecified organism (2) Altered mental status Status: Resolved Assessment & Plan: - Seems to be closer to baseline this AM after transfer, Normal CT done in ER Qualifiers: Qualified Codes: R41.82 - Altered mental status, unspecified (3) Urinary tract infection Status: Acute Assessment & Plan: - Continue Rocephin daily Qualifiers: Qualified Codes: N30.01 - Acute cystitis with hematuria (4) BPH (benign prostatic hyperplasia) Status: Chronic Assessment & Plan: - Will get bladder scan, post void 02/13: Scans showing 100-250 PPR, continue flomax Qualifiers: Qualified Codes: N40.1 - Benign prostatic hyperplasia with lower urinary tract symptoms; R35.0 - Frequency of micturition (5) HTN (hypertension) Status: Chronic Assessment & Plan: - Continue home meds Qualifiers: Qualified Codes: I10 - Essential (primary) hypertension (6) Debility Status: Acute Assessment & Plan: - PT ordered 02/13: Discussed possible SNF, patient desires to return home, discussed safety with patient (7) Depressed affect Status: Acute Assessment & Plan: 02/13: Consider starting SSRI (8) Nausea & vomiting Status: Acute Assessment & Plan: 02/13: episode after morning meds, resolved now, zofran PRN Qualifiers: Qualified Codes: R11.2 - Nausea with vomiting, unspecified RHONA GARCIA MD Feb 13, 2021 12:08
[2021-02-13] MEDS: lisINopril 5 MG (PRINIVIL) TABLET PO SCH (13:37)
[2021-02-13 16:00] VITALS: BP 117/62
[2021-02-13] MEDS: ENOXAPARIN 40 MG/0.4 ML (LOVENOX) SYR SQ SCH (17:39)
[2021-02-13 20:09] VITALS: BP 133/82
[2021-02-13] MEDS: SIMvastatin 10 MG (ZOCOR) TAB PO SCH (20:55)
[2021-02-13] MEDS: TAMSULOSIN 0.4 MG (FLOMAX) CAP PO SCH (20:56)
[2021-02-14 00:08] VITALS: BP 114/65
[2021-02-14 04:34] VITALS: BP 118/56
[2021-02-14 05:33] LABS: BASOPHILS # (AUTO) 0.1 10^3/uL (0.0-0.1); BASOPHILS % (AUTO) 0 % (0-10); EOSINOPHILS # (AUTO) 0.3 10^3/uL (0.0-0.3); EOSINOPHILS % (AUTO) 3 % (0-10); HEMATOCRIT 41 % (40-54); HEMOGLOBIN 12.9 g/dL (13.3-17.7); LYMPHOCYTES # (AUTO) 1.3 10^3/uL (1.0-4.0); LYMPHOCYTES % (AUTO) 11 % (12-44); MEAN CORPUSCULAR HEMOGLOBIN 29 pg (25-34); MEAN CORPUSCULAR HGB CONC 32 g/dL (32-36); MEAN CORPUSCULAR VOLUME 92 fL (80-99); MEAN PLATELET VOLUME 10.4 fL (9.0-12.2); MONOCYTES # (AUTO) 0.9 10^3/uL (0.0-1.0); MONOCYTES % (AUTO) 8 % (0-12); NEUTROPHILS # (AUTO) 9.2 10^3/uL (1.8-7.8); NEUTROPHILS % (AUTO) 78 % (42-75); PLATELET COUNT 176 10^3/uL (130-400); WHITE BLOOD COUNT 11.8 10^3/uL (4.3-11.0)
[2021-02-14 05:44] LABS: CHLORIDE 107 MMOL/L (98-107); POTASSIUM 3.9 MMOL/L (3.6-5.0); SODIUM 143 MMOL/L (135-145)
[2021-02-14 05:45] LABS: CALCIUM 8.2 MG/DL (8.5-10.1)
[2021-02-14 05:46] LABS: GLUCOSE 115 MG/DL (70-105); TOTAL PROTEIN 5.6 GM/DL (6.4-8.2)
[2021-02-14 05:47] LABS: CARBON DIOXIDE 28 MMOL/L (21-32)
[2021-02-14 05:48] LABS: BILIRUBIN,TOTAL 0.5 MG/DL (0.1-1.0)
[2021-02-14 05:50] LABS: ALKALINE PHOSPHATASE 59 U/L (40-136); CREATININE SERUM 0.65 MG/DL (0.60-1.30); GFR ESTIMATED > 60
[2021-02-14 05:51] LABS: BUN/CREATININE RATIO 20
[2021-02-14 05:53] LABS: ALANINE AMINOTRANSFERASE 25 U/L (0-55)
[2021-02-14 07:43] VITALS: BP 146/67
[2021-02-14] MEDS: cefTRIAXone 1,000 MG/SWFI 10 ML IV PUSH IV SCH ×2 (09:01)
[2021-02-14] MEDS: CLOPIDOGREL 75 MG (PLAVIX) TABLET PO SCH (09:01)
[2021-02-14] MEDS: PANTOPRAZOLE 40 MG (PROTONIX) TAB PO SCH (09:01)
--- NOTE | 2021-02-14 11:04 | Discharge Summary ---
Diagnosis/Chief Complaint Date of Admission Feb 12, 2021 at 09:44 Date of Discharge Discharge Diagnosis Problems/Diagnosis: (1) Sepsis Assessment & Plan: - IVFs, Rocephin, continue to monitor VS 02/13: Patient still has moderate leukocytosis, continue IV antibiotics, will co ntinue to monitor Qualifiers: Qualified Codes: A41.9 - Sepsis, unspecified organism Status: Acute (2) Altered mental status Assessment & Plan: - Seems to be closer to baseline this AM after transfer, Normal CT done in ER Qualifiers: Qualified Codes: R41.82 - Altered mental status, unspecified Status: Resolved Resolution Date/Time: 02/13/21 @ 12:06 (3) Urinary tract infection Assessment & Plan: - Continue Rocephin daily Qualifiers: Qualified Codes: N30.01 - Acute cystitis with hematuria Status: Acute (4) BPH (benign prostatic hyperplasia) Assessment & Plan: - Will get bladder scan, post void 02/13: Scans showing 100-250 PPR, continue flomax Qualifiers: Qualified Codes: N40.1 - Benign prostatic hyperplasia with lower urinary tract symptoms; R35.0 - Frequency of micturition Status: Chronic (5) HTN (hypertension) Assessment & Plan: - Continue home meds Qualifiers: Qualified Codes: I10 - Essential (primary) hypertension Status: Chronic (6) Debility Assessment & Plan: - PT ordered 02/13: Discussed possible SNF, patient desires to return home, discussed safety with patient Status: Acute (7) Depressed affect Assessment & Plan: 02/13: Consider starting SSRI Status: Acute (8) Nausea & vomiting Assessment & Plan: 02/13: episode after morning meds, resolved now, zofran PRN Qualifiers: Qualified Codes: R11.2 - Nausea with vomiting, unspecified Status: Acute Chief Complaint/HPI Chief Complaint/HPI 85 yo M that presented with confusion and some abdominal pain. States that he started feeling different last night. States that he has been getting up 5-10 times the last few days during the night to urinate. This is abnormal for him and he states that he generally has to urinate 2-3 times per night. Denies any fever or chills. No previous UTI. Discharge Summary-Simple/Stand Consultations Discharge Physical Examination Allergies: Coded Allergies: No Known Drug Allergies (Unverified , 6/7/21) Vitals & I&Os Vital Sign - Last 12Hours Date Time Temp Pulse Resp B/P (MAP) Pulse Ox O2 Delivery O2 Flow Rate FiO2 02/14/21 08:00 Room Air 02/14/21 07:43 36.6 76 26 146/67 (93) 97 2.00 Intake and Output 02/14/21 00:00 Intake Total 1320 ml Output Total 40 ml Balance 1280 ml Hospital Course See final discharge diagnosis. Discharge Instructions to patient/family Please see electronic discharge instructions given to patient. Discharge Medications Reviewed and agree with Discharge Medication list on patient's Discharge Instruction sheet RHONA GARCIA MD Feb 14, 2021 11:04
[2021-02-14] MEDS ORDERED: CEFD300C3 PO (11:06)
--- NOTE | 2021-02-14 11:07 | Discharge Summary ---
Discharge [facility] Reconcile Patient Problems Problems Reviewed?: Yes Discharge Medications New, Converted or Re-Newed RX: Transmitted to Pharmacy New Medications: Cefdinir (Cefdinir) 300 Mg Capsule 300 MG PO BID, #10 CAP Continued Medications: Acetaminophen (Tylenol Arthritis) 650 Mg Tablet.er 650 MG PO Q6H PRN for ARTHRITIS PAIN, TAB Ascorbic Acid (Vitamin C) 500 Mg Capsule 1000 MG PO DAILY, CAP TAKES 2 (500MG) TABLETS Calcium Carb/Magnesium Oxid/D3 (Calcium Magnesium + D Tablet) 1 Each Tablet 1 EACH PO DAILY, TAB Clopidogrel Bisulfate (Clopidogrel) 75 Mg Tablet 75 MG PO DAILY, TAB Esomeprazole Magnesium (Esomeprazole Magnesium) 40 Mg Capsule.dr 40 MG PO DAILY, CAP Garlic (Garlic) 1 Each Tablet 1 EACH PO DAILY, TAB Lisinopril (Lisinopril) 5 Mg Tablet 5 MG PO 1200, TAB [place]-3 Fatty Acids/Fish Oil ([place] 3 Fish Oil Softgel) 1 Each Capsule.dr 2 EACH PO DAILY, CAP Pravastatin Sodium (Pravastatin Sodium) 20 Mg Tablet 20 MG PO HS, TAB Tamsulosin HCl (Flomax) 0.4 Mg Cap 0.4 MG PO HS, CAP Thiamine Mononitrate (Vitamin B-1) 100 Mg Tablet 100 MG PO DAILY, TAB Patient Instructions Goal/Follow Up Appt: Keep F.u appt on Friday with Dr Browning Patient Instructions: - Make sure to complete all the antibiotics Activity & Diet Discharge Diet: Cardiac Diet Activity as Tolerated: Yes Copy Copies To 1: SONALI,RHONA MEDELLIN MD, MD Feb 14, 2021 11:07
[2021-02-14] MEDS: lisINopril 5 MG (PRINIVIL) TABLET PO SCH (12:15)
[2021-02-14] MEDS: NS IV 1000 ML 1,000 ML IV SCH (12:18)
== END 2021-02-14 12:30 | disposition home or self-care (01) | DRG 872 ==
LOC: ER FS 06:31 → 4TH 09:44
PROVIDERS: ADMIT Family Medicine; ATTEND Family Medicine
DX: A41.9 Sepsis, unspecified organism (principal); N39.0 Urinary tract infection, site not specified; J44.9 Chronic obstructive pulmonary disease, unspecified; I10 Essential (primary) hypertension; N40.1 Benign prostatic hyperplasia with lower urinary tract symptoms; N39.498 Other specified urinary incontinence; R35.0 Frequency of micturition; M19.91 Primary osteoarthritis, unspecified site; F32.9 Major depressive disorder, single episode, unspecified; Z87.891 Personal history of nicotine dependence; Z86.73 Personal history of transient ischemic attack (TIA), and cerebral infarction without residual deficits
CPT/HCPCS: 36415; 70450; 80053; 80320; 81000; 83605; 85007; 85025; 85027; 87040; 87077; 87088; 87186

== ENCOUNTER 2021-11-26 16:14 | Emergency (ER) | payer MEDICARE ==
[~2021-11-26 16:14] MED LIST changes: +ACET-2650 PO; +ASCO500C17 PO; +CALC-408 PO; +CEFD300C3 PO; +ESOM40CA52 PO; +GARL1TAB2 PO; -LISI-729 PO; +LISI5TAB20 PO; +OMEG1CAP24 PO; +THIA100T68 PO; +TMSL.4C PO
[2021-11-26] MEDS ORDERED: KETOROLAC 30 MG/ML VIAL IM STA (16:39)
--- NOTE | 2021-11-26 17:14 | Diagnostic Imaging Report ---
PROCEDURE: CT lumbar spine without contrast. TECHNIQUE: Multiple contiguous axial images were obtained through the lumbar spine without the use of intravenous contrast. Sagittal and coronal reformations were then performed. Auto Exposure Controls were utilized during the CT exam to meet ALARA standards for radiation dose reduction. INDICATION: Acute on chronic low back pain. COMPARISON: None available. FINDINGS: Diffuse osseous demineralization is present. There is a chronic appearing two-column compression injury of L1, which has retropulsion of bone and the posterior wall into the spinal canal resulting in moderate spinal stenosis at this level. No chronic superior endplate height loss is also present at L4. No acute appearing fracture within the lumbar spine. No sacral insufficiency fracture. 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 Multilevel degenerative changes are greatest at L3-L4 where there is moderate spinal stenosis due to facet osteoarthritis, ligamentum flavum hypertrophy, and disc bulging. Atherosclerotic plaquing of the aorta without aneurysm. IMPRESSION: 1. 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 This has retropulsion of the posterior wall causing moderate spinal stenosis. 2. No acute appearing fracture. 3. Consider MRI of the lumbar spine without contrast for further characterization, as deemed clinically indicated. Dictated by: Dictated on workstation # [id number]
--- NOTE | 2021-11-26 17:32 | ED Back Pain ---
General Chief Complaint: Back Problems Stated Complaint: BACK PAIN Nursing Triage Note: Patient presents to the ED via EMS with c/o lower back pain. EMS reports patient has history of chronic lower back pain due to a crush injury years ago. Patient reports lower back pain worsening over the past 2 weeks. States that he took some Tylenol and it has helped a little. Source of Information: Patient, EMS, Old Records History of Present Illness Date Seen by Provider: Nov 26, 2021 Time Seen by Provider: 16:15 Initial Comments 86-year-old male presenting with complaints of acute on chronic low back pain. He has a history of prior L1 burst fracture and chronic pain. He has had prior spinal injections and chronic medications for his pain. He denies any acute fall or injury. He has had increasing pain over the last few weeks and it was worse the last 1 or 2 days with the weather changes. He had taken some acetaminophen prior to calling EMS to transport him to the emergency department. But time he arrives in the ED he states that the medicine was kicking in and helping him. He states that he had recently switched from seeing Dr. Salcedo to following with Dr. Browning but he has not discussed his back pain issues with Dr. Browning. Location: Lumbar Spine Severity: Severe Pain/Injury Location: Back (Low back) Modifying Factors: Worse With Movement Associated Symptoms: No muscle spasms, No fever, No weakness, No numbness in legs/feet, No tingling in legs/feet, No sensory/motor loss; lower back pain (Acute on chronic low back pain); No loss of bladder control, No loss of bowel control Allergies and Home Medications Allergies Coded Allergies: No Known Drug Allergies (Unverified , 02/12/21) Patient Home Medication List Home Medication List Reviewed: Yes Acetaminophen (Tylenol Arthritis) 650 Mg Tablet.er, 650 MG PO Q6H PRN for ARTHRITIS PAIN, (Reported) Entered as Reported by: CODEY JOYNER on 02/12/21 1219 Ascorbic Acid (Vitamin C) 500 Mg Capsule, 1,000 MG PO DAILY, (Reported) Entered as Reported by: CODEY JOYNER on 02/12/21 1219 Calcium Carb/Magnesium Oxid/D3 (Calcium Magnesium + D Tablet) 1 Each Tablet, 1 EACH PO DAILY, (Reported) Entered as Reported by: CODEY JOYNER on 02/12/21 1219 Cefdinir (Cefdinir) 300 Mg Capsule, 300 MG PO BID Prescribed by: RHONA GARCIA on 02/14/21 1106 Clopidogrel Bisulfate (Clopidogrel) 75 Mg Tablet, 75 MG PO DAILY, (Reported) Entered as Reported by: CANDE WHEELER on 05/01/19 1118 Esomeprazole Magnesium (Esomeprazole Magnesium) 40 Mg Capsule.dr, 40 MG PO DAILY, (Reported) Entered as Reported by: CODEY JOYNER on 02/12/21 1219 Garlic (Garlic) 1 Each Tablet, 1 EACH PO DAILY, (Reported) Entered as Reported by: CODEY JOYNER on 02/12/21 1219 Lisinopril (Lisinopril) 5 Mg Tablet, 5 MG PO 1200, (Reported) Entered as Reported by: CANDE WHEELER on 05/01/19 1118 [place]-3 Fatty Acids/Fish Oil ([place] 3 Fish Oil Softgel) 1 Each Capsule.dr, 2 EACH PO DAILY, (Reported) Entered as Reported by: CODEY JOYNER on 02/12/21 1219 Pravastatin Sodium (Pravastatin Sodium) 20 Mg Tablet, 20 MG PO HS, (Reported) Entered as Reported by: CANDE WHEELER on 05/01/19 1118 Prednisone (Prednisone) 20 Mg Tab, 20 MG PO DAILY Prescribed by: DEAN HERRERA on 11/26/21 1733 Tamsulosin HCl (Flomax) 0.4 Mg Cap, 0.4 MG PO HS, (Reported) Entered as Reported by: CODEY JOYNER on 02/12/21 121 Thiamine Mononitrate (Vitamin B-1) 100 Mg Tablet, 100 MG PO DAILY, (Reported) Entered as Reported by: CODEY JOYNER on 02/12/21 1219 Review of Systems Constitutional: No chills, No fever EENTM: no symptoms reported Respiratory: no symptoms reported Cardiovascular: no symptoms reported Gastrointestinal: no symptoms reported Genitourinary: no symptoms reported Musculoskeletal: see HPI Skin: No change in color, No rash Psychiatric/Neurological: Anxiety; Denies Numbness, Denies Weakness Past Dvgvwho-Eeqsta-Hwuhgn Hx Patient Social History Tobacco Use?: No Use of E-Cig and/or Vaping dev: No Substance use?: No Alcohol Use?: No Pt feels they are or have been: No Immunizations Up To Date First/Initial COVID19 Vaccinat: Unknown Seasonal Allergies Seasonal Allergies: No Past Medical History Surgery/Hospitalization HX: HTN; Chronic back pain; BPH; High cholesterol; GERD Surgeries: Yes (cataracts) Respiratory: Yes COPD Cardiac: Yes Hypertension Neurological: Yes (Maury palsey) Stroke, TIA Genitourinary: Yes Benign Prostatic Hyperpl Gastrointestinal: No Musculoskeletal: Yes Arthritis, Back Injury Endocrine: No HEENT: No Cancer: No Psychosocial: No Integumentary: No Physical Exam Vital Signs Vital Signs - First Documented 11/26/21 16:15 Temp 36.7 Pulse 70 Resp 69 B/P (MAP) 149/76 (100) Pulse Ox 98 O2 Delivery Room Air Capillary Refill : Less Than 3 Seconds Height, Weight, BMI Height: 5'10.00" Weight: 200lbs. oz. 90.138322xu; 26.17 BMI Method:Stated General Appearance: No Apparent Distress, Anxious, Other (Intermittently will cry for no reason) HEENT: PERRL/EOMI, Pharynx Normal Neck: Full Range of Motion, Normal Inspection, Non Tender, Supple Cardiovascular: Regular Rate, Rhythm, Normal Peripheral Pulses Respiratory: Chest Non Tender, Lungs Clear, Normal Breath Sounds Gastrointestinal: No Pulsatile Mass, Non Tender, Soft Back: Vertebral Tenderness (L1-L2 area of his spine tender to palpation without step-off or crepitus) Extremity: Normal Capillary Refill, No Pedal Edema Neurologic/Psychiatric: Alert, Oriented x3 Skin: Normal Color, Warm/Dry Progress/Results/Core Measures Results/Orders My Orders Orders - DEAN HERRERA MD Ketorolac Injection (Toradol Injection) (11/26/21 16:39) Ct Lumbar Spine Wo (11/26/21 16:39) Vital Signs/I&O 11/26/21 11/26/21 16:15 17:47 Temp 36.7 36.7 Pulse 70 70 Resp 69 60 B/P (MAP) 149/76 (100) 144/84 Pulse Ox 98 96 O2 Delivery Room Air Room Air Blood Pressure Mean: 100 Progress Progress Note #1: Progress Note Patient states that his pain was doing better with the acetaminophen he took prior to calling EMS. We will give low-dose of Toradol to try and help from a pain and inflammation standpoint. Obtain CT scan of the lumbar spine to see if there is any acute process. Progress Note #2: Progress Note Chronic changes on his CT scan of the lumbar spine but no acute process seen. Recommend MRI scan if having continued concerns. Patient's pain did seem to be improved with the combination of the Toradol on top of his acetaminophen. Will discharge on a few days of steroid to help with his pain. Encouraged to follow- up with the clinic and work with Dr. Browning and charge entry specialist about his chronic back pain Diagnostic Imaging Diagonstic Imaging: CT Plain Films/CT/US/NM/MRI: other (lumbar spine) Comments NAME: MAE FAUSTIN REC#: [id number] PT STATUS: REG ER : 1935 PHYSICIAN: DEAN HERRERA MD ADMIT DATE: 11/26/21/ER FS Draft Date of Exam:11/26/21 CT LUMBAR SPINE WO PROCEDURE: CT lumbar spine without contrast. TECHNIQUE: Multiple contiguous axial images were obtained through the lumbar spine without the use of intravenous contrast. Sagittal and coronal reformations were then performed. Auto Exposure Controls were utilized during the CT exam to meet ALARA standards for radiation dose reduction. INDICATION: Acute on chronic low back pain. COMPARISON: None available. FINDINGS: Diffuse osseous demineralization is present. There is a chronic appearing two-column compression injury of L1, which has retropulsion of bone and the posterior wall into the spinal canal resulting in moderate spinal stenosis at this level. No chronic superior endplate height loss is also present at L4. No acute appearing fracture within the lumbar spine. No sacral insufficiency fracture. 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 Multilevel degenerative changes are greatest at L3-L4 where there is moderate spinal stenosis due to facet osteoarthritis, ligamentum flavum hypertrophy, and disc bulging. Atherosclerotic plaquing of the aorta without aneurysm. IMPRESSION: 1. 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 This has retropulsion of the posterior wall causing moderate spinal stenosis. 2. No acute appearing fracture. 3. Consider MRI of the lumbar spine without contrast for further characterization, as deemed clinically indicated. Dictated on workstation # [id number] Dict: 11/26/21 1704 Trans: 11/26/21 1713 [id number] Interpreted by: LUPE MARTINEZ MD Electronically signed by: Reviewed: Reviewed by Me Departure Impression Primary Impression: Acute exacerbation of chronic low back pain Disposition: HOME, SELF-CARE Condition: Stable Departure-Patient Inst. Decision time for Depature: 17:28 Referrals: MARCUS BROWNING MD Primary Care Physician Patient Instructions: Low Back Pain ED Add. Discharge Instructions: Continue with Acetaminophen 650 mg every 6 hours as needed for pain. Take Prednisone, steroid medicine, to help with inflammation and pain. Follow up with Dr. Browning and [facility] clinic about your chronic back pain and you may need to see spine or pain specialist again about injections to help with your chronic low back pain. All discharge instructions reviewed with patient and/or family. Voiced understanding. Scripts Prednisone (Prednisone) 20 Mg Tab 20 MG PO DAILY for Back Pain for 5 Days, #5 TAB 0 Refills Prov: DEAN HERRERA MD 11/26/21 DEAN HERRERA MD Nov 26, 2021 17:32
[2021-11-26] MEDS ORDERED: PRD20T PO (17:33)
[2021-11-26 17:47] VITALS: BP 144/84
== END 2021-11-26 18:10 | disposition home or self-care (01) ==
LOC: EDUNIT# 16:14 → ER FS 16:15
DX: G89.29 Other chronic pain (principal); M54.50 Low back pain, unspecified
CPT/HCPCS: 72131; 96372

== ENCOUNTER 2022-03-26 22:00 | Emergency (ER) | payer MEDICARE ==
[~2022-03-26 22:00] MED LIST changes: +PRD20T PO
--- NOTE | 2022-03-26 22:34 | ED Upper Extremity ---
General Chief Complaint: Upper Extremity Stated Complaint: FALL Nursing Triage Note: Pt brought in by ems after a fall at home. Pt states he was up making a sandwich and fell on his left shoulder and is complaining of pain. Pt denies hitting his head or loc at time of fall Source: patient, EMS Exam Limitations: no limitations History of Present Illness Date Seen by Provider: Mar 26, 2022 Time Seen by Provider: 22:20 Initial Comments 86-year-old right-handed male patient brought in by EMS because of a mechanical fall at his home on injury to left shoulder. Patient denies other injuries and rated his pain 8/10. Patient did not have pain medication at home or by BLS team, does not want to have pain medication at this moment. Allergies and Home Medications Allergies Coded Allergies: No Known Drug Allergies (Unverified , 02/12/21) Patient Home Medication List Home Medication List Reviewed: Yes Acetaminophen (Tylenol Arthritis) 650 Mg Tablet.er, 650 MG PO Q6H PRN for ARTHRITIS PAIN, (Reported) Entered as Reported by: CODEY JOYNER on 02/12/21 1219 Ascorbic Acid (Vitamin C) 500 Mg Capsule, 1,000 MG PO DAILY, (Reported) Entered as Reported by: CODEY JOYNER on 02/12/21 1219 Calcium Carb/Magnesium Oxid/D3 (Calcium Magnesium + D Tablet) 1 Each Tablet, 1 EACH PO DAILY, (Reported) Entered as Reported by: CODEY JOYNER on 02/12/21 1219 Cefdinir (Cefdinir) 300 Mg Capsule, 300 MG PO BID Prescribed by: RHONA GARCIA on 02/14/21 1106 Clopidogrel Bisulfate (Clopidogrel) 75 Mg Tablet, 75 MG PO DAILY, (Reported) Entered as Reported by: CANDE WHEELER on 05/01/19 1118 Esomeprazole Magnesium (Esomeprazole Magnesium) 40 Mg Capsule.dr, 40 MG PO DAILY, (Reported) Entered as Reported by: CODEY JOYNER on 02/12/21 1219 Garlic (Garlic) 1 Each Tablet, 1 EACH PO DAILY, (Reported) Entered as Reported by: CODEY JOYNER on 02/12/21 1219 Lisinopril (Lisinopril) 5 Mg Tablet, 5 MG PO 1200, (Reported) Entered as Reported by: CANDE WHEELER on 05/01/19 1118 [place]-3 Fatty Acids/Fish Oil ([place] 3 Fish Oil Softgel) 1 Each Capsule.dr, 2 EACH PO DAILY, (Reported) Entered as Reported by: CODEY JOYNER on 02/12/21 1219 Pravastatin Sodium (Pravastatin Sodium) 20 Mg Tablet, 20 MG PO HS, (Reported) Entered as Reported by: CANDE WHEELER on 05/01/19 1118 Prednisone (Prednisone) 20 Mg Tab, 20 MG PO DAILY Prescribed by: DEAN HERRERA on 11/26/21 1733 Tamsulosin HCl (Flomax) 0.4 Mg Cap, 0.4 MG PO HS, (Reported) Entered as Reported by: CODEY JOYNER on 02/12/21 1219 Thiamine Mononitrate (Vitamin B-1) 100 Mg Tablet, 100 MG PO DAILY, (Reported) Entered as Reported by: CODEY JOYNER on 02/12/21 1219 Review of Systems Constitutional: no symptoms reported EENTM: no symptoms reported Respiratory: no symptoms reported Cardiovascular: no symptoms reported Gastrointestinal: no symptoms reported Genitourinary: no symptoms reported Musculoskeletal: see HPI Skin: no symptoms reported Psychiatric/Neurological: No Symptoms Reported Past Hpvrbex-Qrmikp-Ligzyi Hx Patient Social History Tobacco Use?: No Use of E-Cig and/or Vaping dev: No Substance use?: No Alcohol Use?: No Pt feels they are or have been: No Immunizations Up To Date First/Initial COVID19 Vaccinat: Unknown Seasonal Allergies Seasonal Allergies: No Past Medical History Surgery/Hospitalization HX: HTN; Chronic back pain; BPH; High cholesterol; GERD Surgeries: Yes (cataracts) Respiratory: Yes COPD Cardiac: Yes Hypertension Neurological: Yes ([place] palsey) Stroke, TIA Genitourinary: Yes Benign Prostatic Hyperpl Gastrointestinal: No Musculoskeletal: Yes Arthritis, Back Injury Endocrine: No HEENT: No Cancer: No Psychosocial: No Integumentary: No Physical Exam Vital Signs Vital Signs - First Documented 03/26/22 22:03 Temp 36.3 Pulse 73 Resp 18 B/P (MAP) 165/75 (105) Pulse Ox 93 O2 Delivery Room Air Capillary Refill : Less Than 3 Seconds Height, Weight, BMI Height: 5'10.00" Weight: 200lbs. oz. [id number]; 26.17 BMI Method:Stated General Appearance: mild distress HEENT: PERRL/EOMI, normal ENT inspection Neck: non-tender, full range of motion Cardiovascular: normal peripheral pulses, regular rate, rhythm, no edema Respiratory: chest non-tender, lungs clear, normal breath sounds Back: normal inspection Shoulder: bone tenderness, limited ROM, pain Elbow/Forearm: normal inspection Wrist: Yes normal inspection Hand: normal inspection Neurologic/Tendon: normal sensation Neurologic/Psychiatric: alert, normal mood/affect, oriented x 3 Skin: normal color Progress/Results/Core Measures Results/Orders My Orders Orders - JOLENE NICHOLS MD Shoulder 3 View Left (03/26/22 22:25) Vital Signs/I&O 03/26/22 22:03 Temp 36.3 Pulse 73 Resp 18 B/P (MAP) 165/75 (105) Pulse Ox 93 O2 Delivery Room Air Blood Pressure Mean: 105 Progress Progress Note : Progress Note Evaluation of patient in ER showed 86-year-old male patient with a fall at home and injury to left shoulder with nondisplaced fracture of one third distal of clavicle. Shoulder sling applied and patient treated with [place]. Plan discharge patient home with instructions to follow-up with on-call orthopedic Dr. Dr. Rich Stafford. Diagnostic Imaging Diagonstic Imaging: Xray (Left shoulder) Comments Left shoulder x-ray interpreted by radiologist and reviewed by me and showed: [facility] [place] NAME: MAE FAUSTIN [facility] REC#: [id number] PT STATUS: REG ER : 1935 PHYSICIAN: JOLENE NICHOLS MD ADMIT DATE: 03/26/22/ER FS Signed Date of Exam:03/26/22 SHOULDER 3 VIEW LEFT INDICATION: Fall FINDINGS: 3 view left shoulder shows bony demineralization. There is a nondisplaced fracture to the distal 3rd of the clavicle without AC joint or CC joint separation. There is degenerative changes to the glenohumeral joint. The visualized left upper lung, ribs and pleura nonacute. Scapula nonacute. IMPRESSION: Bony demineralization with an apparent nondisplaced fracture distal 3rd left clavicle. Glenohumeral and acromioclavicular arthritis but no other fracture and no AC joint separation. Dictated by: Dictated on workstation # [id number] Dict: 03/26/226 Trans: 03/26/22 2245 [facility] [id number] Interpreted by: ARTURO RAY Electronically signed by: ARTURO RAY 03/26/225 Departure Impression Primary Impression: Closed nondisplaced fracture of left clavicle Qualified Codes: S42.035A - Nondisplaced fracture of lateral end of left clavicle, initial encounter for closed fracture Additional Impression: Fall Qualified Codes: W19.XXXD - Unspecified fall, subsequent encounter Disposition: HOME, SELF-CARE Condition: Improved Departure-Patient Inst. Decision time for Depature: 23:03 Referrals: COREY MONACO MD (PCP/Family) Primary Care Physician RICH STAFFORD MD Patient Instructions: Clavicle Fracture, How to Use a Shoulder Sling ED, Preventing Falls ED Add. Discharge Instructions: Follow-up with on-call orthopedic physician in 2 or 3 days Apply ice on left shoulder Return to ER as needed All discharge instructions reviewed with patient and/or family. Voiced understanding. Scripts Tramadol HCl (Ultram) 50 Mg Tablet 50 MG PO Q6H for Pain, #14 TAB Prov: JOLENE NICHOLS MD 03/26/22 JOLENE NICHOLS MD Mar 26, 2022 22:34
--- NOTE | 2022-03-26 22:46 | Diagnostic Imaging Report ---
INDICATION: Fall FINDINGS: 3 view left shoulder shows bony demineralization. There is a nondisplaced fracture to the distal 3rd of the clavicle without AC joint or CC joint separation. There is degenerative changes to the glenohumeral joint. The visualized left upper lung, ribs and pleura nonacute. Scapula nonacute. IMPRESSION: Bony demineralization with an apparent nondisplaced fracture distal 3rd left clavicle. Glenohumeral and acromioclavicular arthritis but no other fracture and no AC joint separation. Dictated by: Dictated on workstation # [id number]
[2022-03-26] MEDS ORDERED: HYDROcodone/APAP 5 MG/325 MG (LORTAB) TAB PO ONE (23:00)
[2022-03-26] MEDS ORDERED: TRAM-42 PO (23:06)
[2022-03-26 23:10] VITALS: BP 165/75
== END 2022-03-26 23:40 | disposition home or self-care (01) ==
LOC: EDUNIT# 22:00 → ER FS 22:01
DX: S42.035A Nondisplaced fracture of lateral end of left clavicle, initial encounter for closed fracture (principal); W19.XXXA Unspecified fall, initial encounter; Y92.009 Unspecified place in unspecified non-institutional (private) residence as the place of occurrence of the external cause; Y93.G1 Activity, food preparation and clean up
CPT/HCPCS: 73030; A4565

== ENCOUNTER 2022-08-19 16:54 | Emergency (ER) | payer MEDICARE ==
[~2022-08-19] VITALS: Ht 175.3 cm; Wt 68.0 kg
[~2022-08-19 16:54] MED LIST changes: +TRAM-42 PO
[2022-08-19 17:44] LABS: BASOPHILS % (AUTO) 1 % (0-10); EOSINOPHILS # (AUTO) 0.2 10^3/uL (0.0-0.3); EOSINOPHILS % (AUTO) 3 % (0-10); HEMATOCRIT 43 % (40-54); HEMOGLOBIN 14.4 g/dL (13.3-17.7); LYMPHOCYTES # (AUTO) 1.7 10^3/uL (1.0-4.0); LYMPHOCYTES % (AUTO) 31 % (12-44); MEAN CORPUSCULAR HEMOGLOBIN 29 pg (25-34); MEAN CORPUSCULAR HGB CONC 34 g/dL (32-36); MEAN CORPUSCULAR VOLUME 87 fL (80-99); MONOCYTES # (AUTO) 0.6 10^3/uL (0.0-1.0); MONOCYTES % (AUTO) 10 % (0-12); NEUTROPHILS % (AUTO) 55 % (42-75); PLATELET COUNT 188 10^3/uL (130-400); WHITE BLOOD COUNT 5.5 10^3/uL (4.3-11.0)
[2022-08-19 18:08] LABS: BILIRUBIN,TOTAL 0.7 MG/DL (0.1-1.0); CALCIUM 9.4 MG/DL (8.5-10.1); CREATININE SERUM 0.68 MG/DL (0.60-1.30); TOTAL PROTEIN 6.6 GM/DL (6.4-8.2)
[2022-08-19] MEDS ORDERED: CATHETER FLUSH 10 ML SYR IV PRN (18:15)
[2022-08-19] MEDS ORDERED: NS 100 ML (IVPB) BAG IV ONE (18:15)
[2022-08-19] MEDS ORDERED: HOLD METFORMIN - RECEIVED CONTRAST 20 ML VIAL IV SCH (18:15)
[2022-08-19] MEDS ORDERED: IOHEXOL 350 MG/ML 100 ML (OMNIPAQUE 350) VIAL IV ONE (18:15)
--- NOTE | 2022-08-19 18:45 | Diagnostic Imaging Report ---
EXAMINATION: CT abdomen and pelvis with intravenous contrast. TECHNIQUE: Multiple contiguous axial images were obtained through the abdomen and pelvis after the uneventful administration of intravenous contrast. All CT scans use one or more of the following dose optimizing techniques: automated exposure control, MA and/or KvP adjustment based on patient size and exam type or iterative reconstruction. HISTORY: Abdominal pain. COMPARISON: None available. FINDINGS: Lung bases: Bibasilar dependent atelectasis. Solid organs: The liver is normal without focal lesion. Multiple layering hyperdense stones within the gallbladder. There is no biliary ductal dilation. Pancreas is normal. Spleen is normal. Adrenal glands are normal. The kidneys are normal without hydronephrosis. Bowel: The stomach and small bowel are normal without obstruction. There is scattered colonic diverticulosis. The appendix is normal. Peritoneum: There is no intraperitoneal free fluid or free air. No suspicious lymphadenopathy. Vasculature: Calcification of the aorta without aneurysm. Musculoskeletal: Multilevel degenerative changes of the lumbar spine with chronic compression fractures. Pelvis: The prostate gland is normal. There is bladder wall thickening and trabeculation with a prominent stone in the right bladder base. IMPRESSION: 1. No acute abnormality in the abdomen or pelvis. 2. Prominent bladder stone measuring up to 1.6 cm with bladder wall thickening and trabeculation. This can be seen with chronic bladder outlet obstruction. 3. Colonic diverticulosis without findings of diverticulitis. 4. Cholelithiasis. Dictated by: Dictated on workstation # [id number]
--- NOTE | 2022-08-19 18:52 | ED Abdominal Pain ---
General Chief Complaint: Abdominal/GI Problems Stated Complaint: ABD PAIN Nursing Triage Note: PT TO ROOM FS06 WITH C/O ABD PAIN AND DIARRHEA STARTING YESTERDAY. PT REPORTS DRINKING PRUNE JUICE TO FIX THE DIARRHEA. Source of Information: Patient Exam Limitations: No Limitations History of Present Illness Date Seen by Provider: Aug 19, 2022 Time Seen by Provider: 17:45 Initial Comments Patient is a 87-year-old male presents with diarrhea and intermittent lower abdominal pain starting earlier today. Patient reports diffuse lower abdominal pain with tenderness with multiple episodes of loose stools earlier today. Pain is mild to moderate worse with palpation and movement. No medications or therapies prior to ED arrival. Patient denies nausea vomiting sweats upper abdominal pain or fullness. No fever chills or sweats. No flank pain. No dysuria or hematuria. No history of kidney stones. No other acute symptoms or complaints Timing/Duration: 4-6 Hours Severity/Quality: Moderate Location: Other Radiation: Other Activities at Onset: Other Modifying Factors: Improves With Other Allergies and Home Medications Allergies Coded Allergies: No Known Drug Allergies (Unverified , 02/12/21) Patient Home Medication List Home Medication List Reviewed: Yes Acetaminophen (Tylenol Arthritis) 650 Mg Tablet.er, 650 MG PO Q6H PRN for ARTHRITIS PAIN, (Reported) Entered as Reported by: CODEY JOYNER on 02/12/21 1219 Ascorbic Acid (Vitamin C) 500 Mg Capsule, 1,000 MG PO DAILY, (Reported) Entered as Reported by: CODEY JOYNER on 02/12/21 1219 Calcium Carb/Magnesium Oxid/D3 (Calcium Magnesium + D Tablet) 1 Each Tablet, 1 EACH PO DAILY, (Reported) Entered as Reported by: CODEY JOYNER on 02/12/21 1219 Cefdinir (Cefdinir) 300 Mg Capsule, 300 MG PO BID Prescribed by: RHONA GARCIA on 02/14/21 1106 Clopidogrel Bisulfate (Clopidogrel) 75 Mg Tablet, 75 MG PO DAILY, (Reported) Entered as Reported by: CANDE WHEELER on 05/01/19 1118 Esomeprazole Magnesium (Esomeprazole Magnesium) 40 Mg Capsule.dr, 40 MG PO DAILY, (Reported) Entered as Reported by: CODEY JOYNER on 02/12/21 1219 Garlic (Garlic) 1 Each Tablet, 1 EACH PO DAILY, (Reported) Entered as Reported by: CODEY JOYNER on 02/12/21 1219 Lisinopril (Lisinopril) 5 Mg Tablet, 5 MG PO 1200, (Reported) Entered as Reported by: CANDE WHEELER on 05/01/19 1118 [place]-3 Fatty Acids/Fish Oil ([place] 3 Fish Oil Softgel) 1 Each Capsule.dr, 2 EACH PO DAILY, (Reported) Entered as Reported by: CODEY JOYNER on 02/12/21 1219 Pravastatin Sodium (Pravastatin Sodium) 20 Mg Tablet, 20 MG PO HS, (Reported) Entered as Reported by: CANDE WHEELER on 05/01/19 1118 Prednisone (Prednisone) 20 Mg Tab, 20 MG PO DAILY Prescribed by: DEAN HERRERA on 11/26/21 1733 Tamsulosin HCl (Flomax) 0.4 Mg Cap, 0.4 MG PO HS, (Reported) Entered as Reported by: CODEY JOYNER on 02/12/21 1219 Thiamine Mononitrate (Vitamin B-1) 100 Mg Tablet, 100 MG PO DAILY, (Reported) Entered as Reported by: CODEY JOYNER on 02/12/21 1219 Tramadol HCl (Ultram) 50 Mg Tablet, 50 MG PO Q6H Prescribed by: Mallika chung on 03/26/22 8955 Review of Systems Review of Systems Constitutional: see HPI EENTM: See HPI Respiratory: See HPI Cardiovascular: See HPI Gastrointestinal: See HPI Genitourinary: See HPI Musculoskeletal: see HPI Skin: see HPI Psychiatric/Neurological: See HPI Endocrine: See HPI Hematologic/Lymphatic: See HPI All Other Systems Reviewed Negative Unless Noted: No Past Jgeglkx-Hfhuqb-Jekudg Hx Patient Social History Tobacco Use?: No Smoking Status: Never a Smoker Smokeless Tobacco Frequency: Never a User Use of E-Cig and/or Vaping dev: No Use of E-Cig and/or Vaping Adin: Never a User Substance use?: No Alcohol Use?: No Pt feels they are or have been: No Immunizations Up To Date First/Initial COVID19 Vaccinat: Unknown Seasonal Allergies Seasonal Allergies: No Past Medical History Surgery/Hospitalization HX: HTN; Chronic back pain; BPH; High cholesterol; GERD Surgeries: Yes (cataracts) Respiratory: Yes COPD Cardiac: Yes Hypertension Neurological: Yes ([place] palsey) Stroke, TIA Genitourinary: Yes Benign Prostatic Hyperpl Gastrointestinal: No Musculoskeletal: Yes Arthritis, Back Injury Endocrine: No HEENT: No Cancer: No Psychosocial: No Integumentary: No Physical Exam Vital Signs Vital Signs - First Documented 08/19/22 16:56 Temp 36.7 Pulse 75 Resp 16 B/P (MAP) 138/79 (98) O2 Delivery Room Air Capillary Refill : Less Than 3 Seconds Height/Weight/BMI Height: 5'10.00" Weight: 200lbs. oz. 90.746087mq; 22.00 BMI Method:Stated General Appearance: WD/WN, no apparent distress HEENT: PERRL/EOMI, normal ENT inspection Neck: non-tender, full range of motion Respiratory: lungs clear, normal breath sounds Cardiovascular: normal peripheral pulses Gastrointestinal: distended, tenderness (Mild suprapubic pain/tenderness); No hernia, No mass Focused Exam Sepsis Stage: Ruled Out Progress/Results/Core Measures Results/Orders Lab Results Laboratory Tests Test 08/19/22 17:30 08/19/22 18:36 Range/Units White Blood Count 5.5 4.3-11.0 10^3/uL Red Blood Count 4.93 4.30-5.52 10^6/uL Hemoglobin 14.4 13.3-17.7 g/dL Hematocrit 43 40-54 % Mean Corpuscular Volume 87 80-99 fL Mean Corpuscular Hemoglobin 29 25-34 pg Mean Corpuscular Hemoglobin Concent 34 32-36 g/dL Red Cell Distribution Width 13.2 10.0-14.5 % Platelet Count 188 130-400 10^3/uL Mean Platelet Volume 10.0 9.0-12.2 fL Immature Granulocyte % (Auto) 0 % Neutrophils (%) (Auto) 55 42-75 % Lymphocytes (%) (Auto) 31 12-44 % Monocytes (%) (Auto) 10 0-12 % Eosinophils (%) (Auto) 3 0-10 % Basophils (%) (Auto) 1 0-10 % Neutrophils # (Auto) 3.0 1.8-7.8 10^3/uL Lymphocytes # (Auto) 1.7 1.0-4.0 10^3/uL Monocytes # (Auto) 0.6 0.0-1.0 10^3/uL Eosinophils # (Auto) 0.2 0.0-0.3 10^3/uL Basophils # (Auto) 0.0 0.0-0.1 10^3/uL Immature Granulocyte # (Auto) 0.0 0.0-0.1 10^3/uL Sodium Level 138 135-145 MMOL/L Potassium Level 4.0 3.6-5.0 MMOL/L Chloride Level 103 98-107 MMOL/L Carbon Dioxide Level 24 21-32 MMOL/L Anion Gap 11 5-14 MMOL/L Blood Urea Nitrogen 10 7-18 MG/DL Creatinine 0.68 0.60-1.30 MG/DL Estimat Glomerular Filtration Rate 90 BUN/Creatinine Ratio 15 Glucose Level 97 70-105 MG/DL Calcium Level 9.4 8.5-10.1 MG/DL Corrected Calcium 9.4 8.5-10.1 MG/DL Total Bilirubin 0.7 0.1-1.0 MG/DL Aspartate Amino Transf (AST/SGOT) 16 5-34 U/L Alanine Aminotransferase (ALT/SGPT) 11 0-55 U/L Alkaline Phosphatase 66 40-136 U/L Total Protein 6.6 6.4-8.2 GM/DL Albumin 4.0 3.2-4.5 GM/DL Lipase 16 8-78 U/L Urine Color YELLOW Urine Clarity CLEAR Urine pH 5.5 5-9 Urine Specific [place] 1.020 1.016-1.022 Urine Protein NEGATIVE NEGATIVE Urine Glucose (UA) NEGATIVE NEGATIVE Urine Ketones 1+ H NEGATIVE Urine Nitrite NEGATIVE NEGATIVE Urine Bilirubin NEGATIVE NEGATIVE Urine Urobilinogen 0.2 < = 1.0 MG/DL Urine Leukocyte Esterase NEGATIVE NEGATIVE Urine RBC (Auto) NEGATIVE NEGATIVE Urine RBC NONE /HPF Urine WBC NONE /HPF Urine Squamous Epithelial Cells 0-2 /HPF Urine Crystals PRESENT H /LPF Urine Amorphous Sediment RARE ANDREW URATES H /LPF Urine Bacteria NEGATIVE /HPF Urine Casts NONE /LPF Urine Mucus SMALL H /LPF Urine Culture Indicated NO My Orders Narda - MISTY ROTHMAN DO Cbc With Automated Diff (08/19/22 17:38) Comprehensive Metabolic Panel (08/19/22 17:38) Lipase (08/19/22 17:38) Urinalysis (08/19/22 17:38) Ct Abdomen/Pelvis W (08/19/22 17:38) Ed Iv/Invasive Line Start (08/19/22 17:39) Iohexol Injection (Omnipaque 350 Mg/Ml 1 (08/19/22 18:15) Received Contrast (Hold Metformin- Contr (08/19/22 18:15) Sodium Chloride Flush (Catheter Flush Sy (08/19/22 18:15) Ns (Ivpb) (Sodium Chloride 0.9% Ivpb Bag (08/19/22 18:15) Medications Given in ED Current Medications Medications Dose Ordered Sig/Glenny Route Start Time Stop Time Status Last Admin Dose Admin Iohexol 100 ml ONCE ONCE IV 08/19/22 18:15 08/19/22 18:16 DC 08/19/22 18:31 80 ML Sodium Chloride 100 ml ONCE ONCE IV 08/19/22 18:15 08/19/22 18:16 DC 08/19/22 18:31 100 ML Vital Signs/I&O 08/19/22 16:56 Temp 36.7 Pulse 75 Resp 16 B/P (MAP) 138/79 (98) O2 Delivery Room Air Blood Pressure Mean: 98 Departure Communication (Admissions) CT abdomen and pelvis: No acute findings per radiology report. Patient with lower abdominal pain with diarrhea. Symptoms resolved while in the emergency department. Patient's abdomen soft, nonsurgical. Lab work and CT reviewed and are reassuring. Recommendations are watchful waiting supportive care with PCP follow-up. Return cautions reviewed. Patient verbalizes understanding agreement with discharge instructions prior to departure peer Impression Primary Impression: Abdominal pain Additional Impression: Diarrhea Disposition: 01 HOME, SELF-CARE Condition: Stable Departure-Patient Inst. Decision time for Depature: 19:52 Referrals: COREY MONACO MD (PCP/Family) Primary Care Physician Patient Instructions: Abdominal Pain, Adult ED, Diarrhea, Adult ED Add. Discharge Instructions: You were evaluated in the emergency for abdominal pain and diarrhea. Lab work and CT imaging were performed and are nondiagnostic. The cause of your symptoms has not been determined, but is consistent with the stomach flu. Please go home and rest, increase fluids and take Pepto-Bismol as needed for stomach upset. Follow-up with your PCP as needed. Return to ED if new or concerning symptoms. All discharge instructions reviewed with patient and/or family. Voiced understanding. MISTY ROTHMAN DO Aug 19, 2022 18:51
[2022-08-19 18:53] LABS: BILIRUBIN,URINE NEGATIVE (NEGATIVE); CLARITY,URINE CLEAR; COLOR,URINE YELLOW; GLUCOSE, URINE (UA) NEGATIVE (NEGATIVE); KETONES,URINE 1+ (NEGATIVE); LEUKOCYTE ESTERASE ,URINE NEGATIVE (NEGATIVE); NITRITE,URINE NEGATIVE (NEGATIVE); PH,URINE 5.5 (5-9); PROTEIN,URINE NEGATIVE (NEGATIVE)
[2022-08-19 19:04] LABS: AMORPHOUS SEDIMENT,UR RARE AMOR URATES /LPF; BACTERIA,URINE NEGATIVE /HPF; SQUAMOUS EPITHELIAL CELL,UR 0-2 /HPF
[2022-08-19 20:00] VITALS: BP 138/79
== END 2022-08-19 20:00 | disposition home or self-care (01) ==
LOC: EDUNIT# 16:54 → ER FS 16:56
DX: R10.30 Lower abdominal pain, unspecified (principal); R19.7 Diarrhea, unspecified; Z28.310 Unvaccinated for COVID-19
CPT/HCPCS: 36415; 74177; 80053; 81000; 83690; 85025; Q9967

== ENCOUNTER 2022-08-21 20:16 | Emergency (ER) | payer MEDICARE ==
[~2022-08-21] VITALS: Ht 175 cm; Wt 68.0 kg
--- NOTE | 2022-08-21 20:29 | ED Fall/Injury ---
General Stated Complaint: FALL Source: patient, EMS, old records History of Present Illness Date Seen by Provider: Aug 21, 2022 Time Seen by Provider: 20:16 Initial Comments 87-year-old male presenting with EMS from home due to complaints of a fall this morning. He states he tripped over a trash can. He does use a walker for ambulation. He denies hitting his head or losing consciousness. He was complaining of pain in the left shoulder. Earlier this summer he had a fall and had a fracture of the left clavicle. He was concerned about the shoulder being out of socket or injuring the clavicle again today. He called EMS and asked them to transfer him for x-ray and evaluation. Occurred: this morning Severity: mild Injuries/Pain Location: upper extremity (Complaints of pain to the left shoulder) Context: tripped Loss of Consciousness: no loss of consciousness Modifying Factors: Worse With Movement Associated Symptoms (Fall): No Abdominal Pain, No Chest Pain, No Confusion, No Dizziness, No Headache, No Lightheadedness, No Muscle Spasms, No Nausea/Vomiting, No Neck Pain, No Ringing in Ears, No Seizures, No Shortness of Air, No Slurred Speech; Trouble Walking (Chronic and uses a walker); No Vision Changes Allergies and Home Medications Allergies Coded Allergies: No Known Drug Allergies (Unverified , 02/12/21) Patient Home Medication List Home Medication List Reviewed: Yes Acetaminophen (Tylenol Arthritis) 650 Mg Tablet.er, 650 MG PO Q6H PRN for ARTHRITIS PAIN, (Reported) Entered as Reported by: CODEY JOYNER on 02/12/21 1219 Ascorbic Acid (Vitamin C) 500 Mg Capsule, 1,000 MG PO DAILY, (Reported) Entered as Reported by: CODEY JOYNER on 02/12/21 1219 Calcium Carb/Magnesium Oxid/D3 (Calcium Magnesium + D Tablet) 1 Each Tablet, 1 EACH PO DAILY, (Reported) Entered as Reported by: CODEY JOYNER on 02/12/21 1219 Cefdinir (Cefdinir) 300 Mg Capsule, 300 MG PO BID Prescribed by: RHONA GARCIA on 02/14/21 1106 Clopidogrel Bisulfate (Clopidogrel) 75 Mg Tablet, 75 MG PO DAILY, (Reported) Entered as Reported by: CANDE WHEELER on 05/01/19 1118 Esomeprazole Magnesium (Esomeprazole Magnesium) 40 Mg Capsule.dr, 40 MG PO DAILY, (Reported) Entered as Reported by: CODEY JOYNER on 02/12/21 1219 Garlic (Garlic) 1 Each Tablet, 1 EACH PO DAILY, (Reported) Entered as Reported by: CODEY JOYNER on 02/12/21 1219 Lisinopril (Lisinopril) 5 Mg Tablet, 5 MG PO 1200, (Reported) Entered as Reported by: CANDE WHEELER on 05/01/19 1118 [place]-3 Fatty Acids/Fish Oil ([place] 3 Fish Oil Softgel) 1 Each Capsule.dr, 2 EACH PO DAILY, (Reported) Entered as Reported by: CODEY JOYNER on 02/12/21 1219 Pravastatin Sodium (Pravastatin Sodium) 20 Mg Tablet, 20 MG PO HS, (Reported) Entered as Reported by: CANDE WHEELER on 05/01/19 1118 Prednisone (Prednisone) 20 Mg Tab, 20 MG PO DAILY Prescribed by: DEAN HERRERA on 11/26/21 1733 Tamsulosin HCl (Flomax) 0.4 Mg Cap, 0.4 MG PO HS, (Reported) Entered as Reported by: CODEY JOYNER on 02/12/21 1219 Thiamine Mononitrate (Vitamin B-1) 100 Mg Tablet, 100 MG PO DAILY, (Reported) Entered as Reported by: CODEY JOYNER on 02/12/21 121 Tramadol HCl (Ultram) 50 Mg Tablet, 50 MG PO Q6H Prescribed by: Mallika chung on 03/26/22 1782 Review of Systems Review of Systems Constitutional: No chills, No fever Eyes: Denies Blurred Vision, Denies Photophobia Ears, Nose, Mouth, Throat: no symptoms reported Respiratory: no symptoms reported Cardiovascular: no symptoms reported Gastrointestinal: no symptoms reported Genitourinary: no symptoms reported Musculoskeletal: see HPI Skin: no symptoms reported Psychiatric/Neurological: No Symptoms Reported Past Zfpqksv-Zutcqv-Lzwglk Hx Immunizations Up To Date First/Initial COVID19 Vaccinat: Unknown Seasonal Allergies Seasonal Allergies: No Past Medical History Surgery/Hospitalization HX: HTN; Chronic back pain; BPH; High cholesterol; GERD Surgeries: Yes (cataracts) Respiratory: Yes COPD Cardiac: Yes Hypertension Neurological: Yes ([place] palsey) Stroke, TIA Genitourinary: Yes Benign Prostatic Hyperpl Gastrointestinal: No Musculoskeletal: Yes Arthritis, Back Injury Endocrine: No HEENT: No Cancer: No Psychosocial: No Integumentary: No Physical Exam Vital Signs Capillary Refill : Height, Weight, BMI Height: 5'10.00" Weight: 200lbs. oz. 90.735528xg; 22.00 BMI Method:Stated General Appearance: no apparent distress, other (Chronically ill-appearing) HEENT: PERRL/EOMI Neck: non-tender, full range of motion, supple, normal inspection Cardiovascular: normal peripheral pulses, regular rate, rhythm Respiratory: chest non-tender, lungs clear, normal breath sounds Extremities: normal range of motion; No non-tender (Complains of tenderness to palpation and movement of the left shoulder. There is no crepitus or step- off.); normal capillary refill Neurologic/Psychiatric: alert, oriented x 3 Skin: normal color, warm/dry Edita Coma Score Best Eye Response: (4) Open Spontaneously Best Verbal Response: (5) Oriented Best Motor Response: (6) Obeys Commands Edita Total: 15 Progress/Results/Core Measures Results/Orders My Orders Orders - DEAN HERRERA MD Shoulder 3 View Left (08/21/22 20:28) Progress Progress Note #1: Progress Note Obtain x-rays of the left shoulder to evaluate for possible fracture or dis location. He is moving the shoulder so unlikely that it would be dislocated. Progress Note #2: Progress Note Three-view x-rays of the left shoulder do not show any acute fracture or dislocation. The prior clavicle fracture seen in March appears to have healed. Counseled patient on findings and results. Treat with Tylenol and ice as needed. Given information about fall prevention. Encouraged follow-up through the clinic as needed for continued concerns. Diagnostic Imaging Diagonstic Imaging: Xray Plain Films/CT/US/NM/MRI: other (shoulder) Comments [facility], [place] NAME: MAE FAUSTIN Adal [facility] REC#: [id number] PT STATUS: REG ER : 1935 PHYSICIAN: DEAN HERRERA MD ADMIT DATE: 08/21/22/ER FS Signed Date of Exam:08/21/22 SHOULDER 3 VIEW LEFT INDICATION: Pain after fall. EXAMINATION: Three views were obtained. FINDINGS: The bones are osteopenic. There is some arthrosis of the acromioclavicular joint. There is no fracture or dislocation. Left lung is clear. Soft tissues are unremarkable. 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 Dictated by: Dictated on workstation # [id number] Dict: 08/21/222042 Trans: 08/21/222051 [facility] [id number] Interpreted by: LISSET ECHEVERRIA MD Electronically signed by: LISSET ECHEVERRIA MD 08/21/222051 Reviewed: Reviewed by Me Departure Impression Primary Impression: Left shoulder pain Qualified Codes: M25.512 - Pain in left shoulder Additional Impressions: Contusion of left shoulder, initial encounter Fall at home Qualified Codes: W19.XXXA - Unspecified fall, initial encounter; Y92.009 - Unspecified place in unspecified non-institutional (private) residence as the place of occurrence of the external cause Disposition: 01 HOME, SELF-CARE Condition: Stable Departure-Patient Inst. Decision time for Depature: 20:53 Referrals: COREY MONACO MD (PCP/Family) Primary Care Physician Patient Instructions: Preventing Falls ED, Shoulder Pain ED, Minor Contusion ED Add. Discharge Instructions: Use ice 15-20 minutes every few hours as needed for pain and swelling with left shoulder. Tylenol 650 mg every 6 hours as needed for pain Check with primary care provider for continued concerns. DEAN HERRERA MD Aug 21, 2022 20:29
--- NOTE | 2022-08-21 20:47 | Diagnostic Imaging Report ---
INDICATION: Pain after fall. EXAMINATION: Three views were obtained. FINDINGS: The bones are osteopenic. There is some arthrosis of the acromioclavicular joint. There is no fracture or dislocation. Left lung is clear. Soft tissues are unremarkable. 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 Dictated by: Dictated on workstation # [id number]
[2022-08-21 21:15] VITALS: BP 138/63
== END 2022-08-21 21:15 | disposition home or self-care (01) ==
LOC: EDUNIT# 20:16 → ER FS 20:17
DX: S40.012A Contusion of left shoulder, initial encounter (principal); Z28.310 Unvaccinated for COVID-19; W01.0XXA Fall on same level from slipping, tripping and stumbling without subsequent striking against object, initial encounter; Y92.009 Unspecified place in unspecified non-institutional (private) residence as the place of occurrence of the external cause
CPT/HCPCS: 73030

== ENCOUNTER 2022-09-05 02:42 | Emergency (ER) | payer MEDICARE ==
[~2022-09-05] VITALS: Ht 175 cm; Wt 75.0 kg
--- NOTE | 2022-09-05 02:58 | ED Fall/Injury ---
General Stated Complaint: LEFT SIDE PAIN Source: patient Exam Limitations: no limitations History of Present Illness Date Seen by Provider: Sep 05, 2022 Time Seen by Provider: 02:45 Initial Comments 87yoM with past medical history of debility, uses a walker at home coming in delayed after a fall injury. He was seen here on August 21 after he tripped over a trash can landing on his left side. At that time he was having left shoulder pain. X-ray of his shoulder was without acute abnormalities so he was discharged home. He states shortly after that he noticed that he was having some left-sided chest wall pain where he had as well. He has been holding off until the past several days its been hurting worse. He states it feels like a rib is displaced to him. He has not taken anything for the pain. Worse when he takes a deep breath, better with rest. Otherwise denies any significant shortness of breath, focal weakness or numbness, or any other concerns. Allergies and Home Medications Allergies Coded Allergies: No Known Drug Allergies (Unverified , 02/12/21) Patient Home Medication List Home Medication List Reviewed: Yes Acetaminophen (Tylenol Arthritis) 650 Mg Tablet.er, 650 MG PO Q6H PRN for ARTHRITIS PAIN, (Reported) Entered as Reported by: CODEY JOYNER on 02/12/21 1219 Ascorbic Acid (Vitamin C) 500 Mg Capsule, 1,000 MG PO DAILY, (Reported) Entered as Reported by: CODEY JOYNER on 02/12/21 1219 Calcium Carb/Magnesium Oxid/D3 (Calcium Magnesium + D Tablet) 1 Each Tablet, 1 EACH PO DAILY, (Reported) Entered as Reported by: CODEY JOYNER on 02/12/21 1219 Cefdinir (Cefdinir) 300 Mg Capsule, 300 MG PO BID Prescribed by: RHONA GARCIA on 02/14/21 1106 Clopidogrel Bisulfate (Clopidogrel) 75 Mg Tablet, 75 MG PO DAILY, (Reported) Entered as Reported by: CANDE WHEELER on 05/01/19 1118 Esomeprazole Magnesium (Esomeprazole Magnesium) 40 Mg Capsule.dr, 40 MG PO DAILY, (Reported) Entered as Reported by: CODEY JOYNER on 02/12/21 1219 Garlic (Garlic) 1 Each Tablet, 1 EACH PO DAILY, (Reported) Entered as Reported by: CODEY JOYNER on 02/12/21 1219 Lisinopril (Lisinopril) 5 Mg Tablet, 5 MG PO 1200, (Reported) Entered as Reported by: CANDE WHEELER on 05/01/19 1118 [place]-3 Fatty Acids/Fish Oil ([place] 3 Fish Oil Softgel) 1 Each Capsule.dr, 2 EACH PO DAILY, (Reported) Entered as Reported by: CODEY JOYNER on 02/12/21 1219 Oxycodone HCl (Oxycodone HCl) 5 Mg Tablet, 5 MG PO Q8H Prescribed by: LILIANA ESCOBEDO on 09/05/22 0329 Pravastatin Sodium (Pravastatin Sodium) 20 Mg Tablet, 20 MG PO HS, (Reported) Entered as Reported by: CANDE WHEELER on 05/01/19 1118 Prednisone (Prednisone) 20 Mg Tab, 20 MG PO DAILY Prescribed by: DEAN HERRERA on 11/26/21 1733 Tamsulosin HCl (Flomax) 0.4 Mg Cap, 0.4 MG PO HS, (Reported) Entered as Reported by: CODEY JOYNER on 02/12/21 1219 Thiamine Mononitrate (Vitamin B-1) 100 Mg Tablet, 100 MG PO DAILY, (Reported) Entered as Reported by: CODEY JOYNER on 02/12/21 121 Tramadol HCl (Ultram) 50 Mg Tablet, 50 MG PO Q6H Prescribed by: Mallika chung on 03/26/22 2306 Review of Systems Review of Systems Constitutional: No fever Eyes: No Symptoms Reported Ears, Nose, Mouth, Throat: no symptoms reported Respiratory: no symptoms reported Cardiovascular: no symptoms reported Gastrointestinal: no symptoms reported Genitourinary: no symptoms reported Musculoskeletal: see HPI Skin: no symptoms reported Psychiatric/Neurological: No Symptoms Reported All Other Systems Reviewed Negative Unless Noted: Yes Past Ewynftd-Bckxha-Flohvd Hx Patient Social History Tobacco Use?: No Immunizations Up To Date First/Initial COVID19 Vaccinat: Unknown Second COVID19 Vaccination Caleb: Unknown Third COVID19 Vaccination Date: Unknown Seasonal Allergies Seasonal Allergies: No Past Medical History Surgery/Hospitalization HX: HTN; Chronic back pain; BPH; High cholesterol; GERD Surgeries: Yes (cataracts) Respiratory: Yes COPD Cardiac: Yes Hypertension Neurological: Yes ([place] palsey) Stroke, TIA Genitourinary: Yes Benign Prostatic Hyperpl Gastrointestinal: No Musculoskeletal: Yes Arthritis, Back Injury Endocrine: No HEENT: No Cancer: No Psychosocial: No Integumentary: No Physical Exam Vital Signs Vital Signs - First Documented 09/05/22 02:58 Pulse 96 Resp 20 B/P (MAP) 176/88 (117) Pulse Ox 99 O2 Delivery Room Air Capillary Refill : Height, Weight, BMI Height: 5'10.00" Weight: 200lbs. oz. 90.393660nb; 22.00 BMI Method:Stated General Appearance: WD/WN, no apparent distress HEENT: PERRL/EOMI, normal ENT inspection, pharynx normal Neck: non-tender, full range of motion, supple, normal inspection Cardiovascular: regular rate, rhythm, no edema, no murmur Respiratory: lungs clear, normal breath sounds, no respiratory distress, no accessory muscle use, other (Left-sided chest wall pain to palpation) Gastrointestinal: normal bowel sounds, non tender, soft; No distended, No guarding, No rebound Back: normal inspection, no CVA tenderness, no vertebral tenderness Extremities: normal range of motion, non-tender, normal inspection, no pedal edema, no calf tenderness, normal capillary refill Neurologic/Psychiatric: stunt performer II-XII nml as tested, no motor/sensory deficits, alert, normal mood/affect, oriented x 3 Skin: normal color, warm/dry Lymphatic: no adenopathy Edita Coma Score Best Eye Response: (4) Open Spontaneously Best Verbal Response: (5) Oriented Best Motor Response: (6) Obeys Commands Progress/Results/Core Measures Results/Orders My Orders Orders - LILIANA ESCOBEDO MD Ribs/Unilateral With Chest (09/05/22 02:55) Acetaminophen Tablet (Tylenol Tablet) (09/05/22 03:00) Medications Given in ED Current Medications Medications Dose Ordered Sig/Glenny Route Start Time Stop Time Status Last Admin Dose Admin Acetaminophen 1,000 mg ONCE ONCE PO 09/05/22 03:00 09/05/22 03:01 DC 09/05/22 03:15 1,000 MG Vital Signs/I&O 09/05/22 02:58 Pulse 96 Resp 20 B/P (MAP) 176/88 (117) Pulse Ox 99 O2 Delivery Room Air Progress Progress Note : Progress Note 87-year-old male with above history coming in delayed after a fall with left- sided rib pain. ABCs were intact and vitals were stable on presentation. Physical exam with left-sided rib tenderness worse with a deep breath or cough. X-ray chest and left-sided rib series on my interpretation with what appears to be some subacute rib fractures on the left with early callus. Appears to be at least 2 that were slightly displaced. No pneumothorax. Patient's oxygen saturation is normal. Given he is over 2 weeks out since injury, I think it is unlikely he will develop any type of pneumonia from this. We will give him pain medicine to help get him through and have him follow-up with his primary care provider. Departure Impression Primary Impression: Fracture of rib Qualified Codes: S22.42XA - Multiple fractures of ribs, left side, initial encounter for closed fracture Disposition: HOME, SELF-CARE Condition: Stable Departure-Patient Inst. Decision time for Depature: 03:26 Referrals: COREY MONACO MD (PCP/Family) Primary Care Physician Patient Instructions: Rib Fracture or Bruised Rib ED Add. Discharge Instructions: It does look like there are a couple of broken ribs from a couple weeks ago that are already starting to heal. Your lung is still inflated and looks normal. Pain medicine will be sent to your pharmacy. Try to take Tylenol as needed. If you have pain on top of that you can try the oxycodone, but I would only take half of a pill at first to see if that helps. If you are still having severe pain in the next several days, then please follow-up with your regular doctor. Scripts Oxycodone HCl (Oxycodone HCl) 5 Mg Tablet 5 MG PO Q8H for 3 Days, #9 TAB Start initially by taking half a pill every 8 hours. If you have pain on top of that, then you can take the other half of the pill. You can take a total of 3 full pills daily Prov: LILIANA ESCOBEDO MD 09/05/22 LILIANA ESCOBEDO MD Sep 05, 2022 02:58
[2022-09-05] MEDS ORDERED: ACETAMINOPHEN 500 MG TAB (TYLENOL) PO ONE (03:00)
[2022-09-05] MEDS ORDERED: OXYC5TAB PO (03:28)
[2022-09-05 03:45] VITALS: BP 176/88
--- NOTE | 2022-09-05 09:01 | Diagnostic Imaging Report ---
Indication: Left rib pain, fall COMPARISON: 05/01/2019 TECHNIQUE: 3 radiographs of the chest and left-sided ribs dated 09/05/2022 FINDINGS: The cardiac silhouette is within normal limits in size. No significant pulmonary vascular congestion. Tortuosity of the thoracic aorta is again noted. Senescent changes of the lungs are identified without additional focal pulmonary opacity. No significant pleural effusion. No pneumothorax. Acute appearing essentially nondisplaced fracture deformities are noted involving the posterolateral left 3rd, 4th, 6th, and 7th ribs. Degenerative changes are noted within the partially visualized thoracic spine. IMPRESSION: Essentially nondisplaced posterolateral fracturing of the left 3rd, 4th, 6th, and 7th ribs. The more superiorly positioned fracture appear acute in nature. More inferiorly located fractures appear acute to possibly subacute in nature. Acute nondisplaced fracturing of the distal one 3rd of the left clavicle. The acromioclavicular joint appears intact. Dictated by: Dictated on workstation # [id number]
== END 2022-09-05 03:46 | disposition home or self-care (01) ==
LOC: EDUNIT# 02:42 → ER FS 02:46
DX: S22.42XA Multiple fractures of ribs, left side, initial encounter for closed fracture (principal); Z28.310 Unvaccinated for COVID-19; W01.0XXA Fall on same level from slipping, tripping and stumbling without subsequent striking against object, initial encounter; Y92.009 Unspecified place in unspecified non-institutional (private) residence as the place of occurrence of the external cause
CPT/HCPCS: 71101; 99283

== ENCOUNTER 2022-09-23 13:06 | Emergency (ER) | payer MEDICARE ==
[~2022-09-23 13:06] MED LIST changes: +OXYC5TAB PO
--- NOTE | 2022-09-23 13:13 | ED General ---
General Chief Complaint: Chest Wall Stated Complaint: RIB PAIN History of Present Illness Date Seen by Provider: Sep 23, 2022 Time Seen by Provider: 13:12 Initial Comments 87-year-old male presents with left-sided rib pain. Patient has known rib fract ures. He reports because he just continue to have pain. Patient's tried Tylenol. Patient has hydrocodone at home but has not been utilizing it patient denies any new injury. Patient denies any other systemic complaints. Allergies and Home Medications Allergies Coded Allergies: No Known Drug Allergies (Unverified , 02/12/21) Patient Home Medication List Home Medication List Reviewed: Yes Acetaminophen (Tylenol Arthritis) 650 Mg Tablet.er, 650 MG PO Q6H PRN for ARTHRITIS PAIN, (Reported) Entered as Reported by: CODEY JOYNER on 02/12/21 1219 Ascorbic Acid (Vitamin C) 500 Mg Capsule, 1,000 MG PO DAILY, (Reported) Entered as Reported by: CODEY JOYNER on 02/12/21 1219 Calcium Carb/Magnesium Oxid/D3 (Calcium Magnesium + D Tablet) 1 Each Tablet, 1 EACH PO DAILY, (Reported) Entered as Reported by: CODEY JOYNER on 02/12/21 1219 Cefdinir (Cefdinir) 300 Mg Capsule, 300 MG PO BID Prescribed by: RHONA GARCIA on 02/14/21 1106 Clopidogrel Bisulfate (Clopidogrel) 75 Mg Tablet, 75 MG PO DAILY, (Reported) Entered as Reported by: CANDE WHEELER on 05/01/19 1118 Esomeprazole Magnesium (Esomeprazole Magnesium) 40 Mg Capsule.dr, 40 MG PO DAILY, (Reported) Entered as Reported by: CODEY JOYNER on 02/12/21 1219 Garlic (Garlic) 1 Each Tablet, 1 EACH PO DAILY, (Reported) Entered as Reported by: CODEY JOYNER on 02/12/21 1219 Lisinopril (Lisinopril) 5 Mg Tablet, 5 MG PO 1200, (Reported) Entered as Reported by: CANDE WHEELER on 05/01/19 1118 [place]-3 Fatty Acids/Fish Oil ([place] 3 Fish Oil Softgel) 1 Each Capsule.dr, 2 EACH PO DAILY, (Reported) Entered as Reported by: CODEY JOYNER on 02/12/21 1219 Oxycodone HCl (Oxycodone HCl) 5 Mg Tablet, 5 MG PO Q8H Prescribed by: LILIANA ESCOBEDO on 09/05/22 0329 Pravastatin Sodium (Pravastatin Sodium) 20 Mg Tablet, 20 MG PO HS, (Reported) Entered as Reported by: CANDE WHEELER on 05/01/19 1118 Prednisone (Prednisone) 20 Mg Tab, 20 MG PO DAILY Prescribed by: DEAN HERRERA on 11/26/21 1733 Tamsulosin HCl (Flomax) 0.4 Mg Cap, 0.4 MG PO HS, (Reported) Entered as Reported by: CODEY JOYNER on 02/12/21 1219 Thiamine Mononitrate (Vitamin B-1) 100 Mg Tablet, 100 MG PO DAILY, (Reported) Entered as Reported by: CODEY JOYNER on 02/12/21 1219 Tramadol HCl (Ultram) 50 Mg Tablet, 50 MG PO Q6H Prescribed by: Mallika chung on 03/26/22 2306 Review of Systems Review of Systems Constitutional: No chills, No fever Respiratory: no symptoms reported Cardiovascular: see HPI Gastrointestinal: no symptoms reported Genitourinary: no symptoms reported Musculoskeletal: no symptoms reported Skin: no symptoms reported Psychiatric/Neurological: No Symptoms Reported Past Zfuhema-Zzddid-Vrvguo Hx Immunizations Up To Date First/Initial COVID19 Vaccinat: Unknown Second COVID19 Vaccination Caleb: Unknown Third COVID19 Vaccination Date: Unknown Seasonal Allergies Seasonal Allergies: No Past Medical History Surgery/Hospitalization HX: HTN; Chronic back pain; BPH; High cholesterol; GERD Surgeries: Yes (cataracts) Respiratory: Yes COPD Cardiac: Yes Hypertension Neurological: Yes ([place] palsey) Stroke, TIA Genitourinary: Yes Benign Prostatic Hyperpl Gastrointestinal: No Musculoskeletal: Yes Arthritis, Back Injury Endocrine: No HEENT: No Cancer: No Psychosocial: No Integumentary: No Physical Exam Vital Signs Vital Signs - First Documented 09/23/22 13:15 Temp 36.5 Pulse 80 Resp 16 B/P (MAP) 159/78 (105) Pulse Ox 99 O2 Delivery Room Air Capillary Refill : Height, Weight, BMI Height: 5'10.00" Weight: 200lbs. oz. 90.012580ks; 24.00 BMI Method:Stated General Appearance: No Apparent Distress, Other (Tearful) Neck: Normal Inspection, Supple Respiratory: Lungs Clear, Normal Breath Sounds, Other (Tenderness left ribs) Cardiovascular: Regular Rate, Rhythm Gastrointestinal: Non Tender Neurologic/Psychiatric: Alert, Oriented x3 Skin: Normal Color, Warm/Dry Progress/Results/Core Measures Suspected Sepsis SIRS Temperature: Pulse: Respiratory Rate: Blood Pressure / Mean: Results/Orders My Orders Orders - BEBETO CARMEN DO Ketamine Syringe (Ketamine Syringe) (09/23/22 13:30) Medications Given in ED Current Medications Medications Dose Ordered Sig/Glenny Route Start Time Stop Time Status Last Admin Dose Admin Ketamine HCl 10 mg ONCE ONCE IV 09/23/22 13:30 09/23/22 13:31 DC 09/23/22 13:33 10 MG Vital Signs/I&O 09/23/22 09/23/22 13:15 14:00 Temp 36.5 36.5 Pulse 80 70 Resp 16 16 B/P (MAP) 159/78 (105) 142/67 Pulse Ox 99 98 O2 Delivery Room Air Room Air Capillary Refill : Progress Note : Progress Note Patient x-rays were reviewed from prior visit. Patient with no acute changes. Not sure patient understands the use of his pain medication although he has been taking them for a while for chronic back pain. Discussed with him the need to take his already prescribed medication. Patient felt significantly better in both pain and not so tearful following ketamine infusion. Patient should follow-up with his primary care provider as needed. Patient stable and discharged home Departure Impression Primary Impression: Fracture of rib Qualified Codes: S22.32XD - Fracture of one rib, left side, subsequent en counter for fracture with routine healing Disposition: 01 HOME, SELF-CARE Condition: Stable Departure-Patient Inst. Referrals: COREY MONACO MD (PCP) Primary Care Physician Add. Discharge Instructions: Topical lidocaine with menthol cream or gel or patch. This is available at [facility] or [facility]. Use as directed on package. Warm moist heat to the left ribs. Please use your already prescribed pain medication. Please follow-up with your primary care provider in a couple days for recheck. All discharge instructions reviewed with patient and/or family. Voiced understanding. BEBETO CARMEN DO Sep 23, 2022 13:13
[2022-09-23] MEDS ORDERED: KETAMINE 50 MG/5 ML SYRINGE IV ONE (13:30)
[2022-09-23 14:00] VITALS: BP 142/67
[2022-09-23] MEDS ORDERED: IBUPROFEN TABLET 200 MG TAB PO STA (14:16)
== END 2022-09-23 14:18 | disposition home or self-care (01) ==
LOC: EDUNIT# 13:06 → ER FS 13:08
DX: S22.32XA Fracture of one rib, left side, initial encounter for closed fracture (principal); X58.XXXA Exposure to other specified factors, initial encounter
CPT/HCPCS: 99281

== ENCOUNTER 2022-10-28 21:35 | Emergency (ER) | payer MEDICARE ==
[~2022-10-28] VITALS: Ht 175 cm; Wt 68.0 kg
[2022-10-28 21:35] VITALS: BP 124/67
[2022-10-28] MEDS ORDERED: morphine INJ 10 MG/ML 1ML (SYR OR VIAL) IVP STA (21:44)
[2022-10-28] MEDS ORDERED: ONDANSETRON 4 MG/2 ML (SDV) Z0FRAN IVP ONE (21:45)
[2022-10-28] MEDS ORDERED: NS IV 1000 ML 1,000 ML IV SCH (21:45)
--- NOTE | 2022-10-28 21:49 | ED General ---
General Chief Complaint: Trauma-Non Activation Stated Complaint: FALL/LEFT HIP PAIN Source of Information: Patient, EMS, Family Exam Limitations: Other (memory) History of Present Illness Date Seen by Provider: Oct 28, 2022 Time Seen by Provider: 21:10 Initial Comments Patient is a 87-year-old male with history of TIA, gait instability requiring walker, and multiple recurrent falls in the past 2 months who presents left hip pain after falling on concrete in his outdoor garage. The injury occurred sometime between breakfast and lunch. The patient laid on the concrete for several hours as he was unable to stand. He denies hitting his head, loss of consciousness, or neck pain. He takes Plavix daily he has chronic left shoulder pain. He denies chest abdomen or back pain. Patient has left leg pain with shortening, rotation. He is neurovascularly intact. Patient does not recall the cause of his fall. He denies recent illnesses. He denies palpitations, dizziness, seizure episode, focal extremity motor weakness or other strokelike symptoms preceding the fall. Additional history obtained from patient's son and EMS Timing/Duration: 12 Hours Severity: Moderate Modifying Factors: improves with Other Allergies and Home Medications Allergies Coded Allergies: No Known Drug Allergies (Unverified , 02/12/21) Patient Home Medication List Home Medication List Reviewed: Yes Acetaminophen (Tylenol Arthritis) 650 Mg Tablet.er, 650 MG PO Q6H PRN for ARTHRITIS PAIN, (Reported) Entered as Reported by: CODEY JOYNER on 02/12/211218 Last Action: Last Taken Edited Ascorbic Acid (Vitamin C) 500 Mg Capsule, 1,000 MG PO DAILY, (Reported) Entered as Reported by: CODEY JOYNER on 02/12/211218 Last Action: Last Taken Edited Calcium Carb/Magnesium Oxid/D3 (Calcium Magnesium + D Tablet) 1 Each Tablet, 1 EACH PO DAILY, (Reported) Entered as Reported by: CODEY JOYNER on 02/12/211218 Last Action: Last Taken Edited Clopidogrel Bisulfate (Clopidogrel) 75 Mg Tablet, 75 MG PO DAILY, (Reported) Entered as Reported by: CANDE WHEELER on 05/01/19 1118 Last Action: Last Taken Edited Esomeprazole Magnesium (Esomeprazole Magnesium) 40 Mg Capsule.dr, 40 MG PO DAILY, (Reported) Entered as Reported by: CODEY JOYNER on 02/12/211218 Last Action: Last Taken Edited Garlic (Garlic) 1 Each Tablet, 1 EACH PO DAILY, (Reported) Entered as Reported by: CODEY JOYNER on 02/12/211218 Last Action: Last Taken Edited Lisinopril (Lisinopril) 5 Mg Tablet, 5 MG PO 1200, (Reported) Entered as Reported by: CANDE WHEELER on 05/01/191117 Last Action: Last Taken Edited Billings-3 Fatty Acids/Fish Oil (Bill[place] 3 Fish Oil Softgel) 1 Each Capsule.dr, 2 EACH PO DAILY, (Reported) Entered as Reported by: CODEY JOYNER on 02/12/211218 Last Action: Last Taken Edited Pravastatin Sodium (Pravastatin Sodium) 20 Mg Tablet, 20 MG PO HS, (Reported) Entered as Reported by: CANDE WHEELER on 05/01/191117 Last Action: Last Taken Edited Tamsulosin HCl (Flomax) 0.4 Mg Cap, 0.4 MG PO HS, (Reported) Entered as Reported by: CODEY JOYNER on 02/12/211218 Last Action: Last Taken Edited Thiamine Mononitrate (Vitamin B-1) 100 Mg Tablet, 100 MG PO DAILY, (Reported) Entered as Reported by: CODEY JOYNER on 02/12/211218 Last Action: Last Taken Edited Discontinued Medications Cefdinir (Cefdinir) 300 Mg Capsule, 300 MG PO BID Discontinued Reason: Referral/FU Appt-Addtl Prescribed by: RHONA GARCIA on 02/14/21 1106 Last Action: Discontinued Oxycodone HCl (Oxycodone HCl) 5 Mg Tablet, 5 MG PO Q8H Discontinued Reason: Referral/FU Appt-Addtl Prescribed by: LILIANA ESCOBEDO on 09/05/22 0329 Last Action: Discontinued Prednisone (Prednisone) 20 Mg Tab, 20 MG PO DAILY Discontinued Reason: Referral/FU Appt-Addtl Prescribed by: DEAN HERRERA on 11/26/21 7608 Last Action: Discontinued Tramadol HCl (Ultram) 50 Mg Tablet, 50 MG PO Q6H Discontinued Reason: Referral/FU Appt-Addtl Prescribed by: Mallika chung on 03/26/22 2306 Last Action: Discontinued Review of Systems Review of Systems Constitutional: see HPI EENTM: see HPI Respiratory: see HPI Cardiovascular: see HPI Gastrointestinal: see HPI Genitourinary: see HPI Musculoskeletal: see HPI Skin: see HPI Psychiatric/Neurological: See HPI Hematologic/Lymphatic: See HPI Immunological/Allergic: see HPI All Other Systems Reviewed Negative Unless Noted: No Past Wyhbczd-Zkvajw-Bpvgtv Hx Patient Social History Tobacco Use?: No Immunizations Up To Date First/Initial COVID19 Vaccinat: Unknown Second COVID19 Vaccination Caleb: Unknown Third COVID19 Vaccination Date: Unknown Seasonal Allergies Seasonal Allergies: No Past Medical History Surgery/Hospitalization HX: HTN; Chronic back pain; BPH; High cholesterol; GERD Surgeries: Yes (cataracts) Respiratory: Yes COPD Cardiac: Yes Hypertension Neurological: Yes ([place] palsey) Stroke, TIA Genitourinary: Yes Benign Prostatic Hyperpl Gastrointestinal: No Musculoskeletal: Yes Arthritis, Back Injury Endocrine: No HEENT: No Cancer: No Psychosocial: No Integumentary: No Physical Exam Vital Signs Vital Signs - First Documented 10/28/22 21:35 Temp 36.6 Pulse 103 Resp 20 B/P (MAP) 124/67 (86) Pulse Ox 100 O2 Delivery Room Air Capillary Refill : Height, Weight, BMI Height: 5'10.00" Weight: 200lbs. oz. [id number]; 24.00 BMI Method:Stated General Appearance: No Apparent Distress, Other Eyes: Bilateral Eye Normal Inspection, Bilateral Eye PERRL, Bilateral Eye EOMI HEENT: PERRL/EOMI, Normal ENT Inspection, Pharynx Normal Neck: Normal Inspection, Non Tender Respiratory: Lungs Clear Cardiovascular: Regular Rate, Rhythm, No Edema, Other (No chest wall/subcutaneous emphysema) Gastrointestinal: Non Tender, Soft; No Tenderness Back: Normal Inspection, No CVA Tenderness Extremity: Other (Shortening of left leg, left pelvis pain/tenderness. Left shoulder pain, no deformity or joint displaced) Neurologic/Psychiatric: Alert, Normal Mood/Affect Skin: Normal Color, Warm/Dry Focused Exam Sepsis Stage: Ruled Out Lactate Level 10/28/22 21:50: Lactic Acid Level 5.34*H Lactic Acid Level Laboratory Tests Test 10/28/22 21:50 Lactic Acid Level 5.34 MMOL/L (0.50-2.00) *H Progress/Results/Core Measures Suspected Sepsis SIRS Temperature: Pulse: Respiratory Rate: Laboratory Tests 10/28/22 21:50: White Blood Count 16.9H Blood Pressure / Mean: 10/28/22 21:50: Lactic Acid Level 5.34*H Laboratory Tests 10/28/22 21:50: Platelet Count 140 10/28/22 21:55: Creatinine 0.85, Total Bilirubin 0.5 Results/Orders Lab Results Laboratory Tests Test 10/28/22 21:50 10/28/22 21:55 Range/Units White Blood Count 16.9 H 4.3-11.0 10^3/uL Red Blood Count 4.53 4.30-5.52 10^6/uL Hemoglobin 13.2 L 13.3-17.7 g/dL Hematocrit 41 40-54 % Mean Corpuscular Volume 91 80-99 fL Mean Corpuscular Hemoglobin 29 25-34 pg Mean Corpuscular Hemoglobin Concent 32 32-36 g/dL Red Cell Distribution Width 13.2 10.0-14.5 % Platelet Count 140 130-400 10^3/uL Mean Platelet Volume 10.5 9.0-12.2 fL Immature Granulocyte % (Auto) 0 % Neutrophils (%) (Auto) 93 H 42-75 % Lymphocytes (%) (Auto) 2 L 12-44 % Monocytes (%) (Auto) 5 0-12 % Eosinophils (%) (Auto) 0 0-10 % Basophils (%) (Auto) 0 0-10 % Neutrophils # (Auto) 15.6 H 1.8-7.8 10^3/uL Lymphocytes # (Auto) 0.4 L 1.0-4.0 10^3/uL Monocytes # (Auto) 0.8 0.0-1.0 10^3/uL Eosinophils # (Auto) 0.0 0.0-0.3 10^3/uL Basophils # (Auto) 0.0 0.0-0.1 10^3/uL Immature Granulocyte # (Auto) 0.1 0.0-0.1 10^3/uL Neutrophils % (Manual) 85 % Lymphocytes % (Manual) 2 % Monocytes % (Manual) 4 % Band Neutrophils 9 % Platelet Estimate NORMAL Percent Immature Platelet Fraction 3.4 0.0-7.6 % Hypochromasia 1+ Lactic Acid Level 5.34 *H 0.50-2.00 MMOL/L Sodium Level 141 135-145 MMOL/L Potassium Level 4.4 3.6-5.0 MMOL/L Chloride Level 106 98-107 MMOL/L Carbon Dioxide Level 20 L 21-32 MMOL/L Anion Gap 15 H 5-14 MMOL/L Blood Urea Nitrogen 20 H 7-18 MG/DL Creatinine 0.85 0.60-1.30 MG/DL Estimat Glomerular Filtration Rate 84 BUN/Creatinine Ratio 24 Glucose Level 228 H 70-105 MG/DL Calcium Level 8.3 L 8.5-10.1 MG/DL Corrected Calcium 8.6 8.5-10.1 MG/DL Total Bilirubin 0.5 0.1-1.0 MG/DL Aspartate Amino Transf (AST/SGOT) 24 5-34 U/L Alanine Aminotransferase (ALT/SGPT) 14 0-55 U/L Alkaline Phosphatase 102 40-136 U/L Troponin I < 0.30 <0.30 NG/ML Total Protein 5.8 L 6.4-8.2 GM/DL Albumin 3.6 3.2-4.5 GM/DL My Orders Orders - MISTY ROTHMAN DO Cbc With Automated Diff (10/28/22 21:41) Comprehensive Metabolic Panel (10/28/22 21:41) Urinalysis (10/28/22 21:41) Ekg Tracing (10/28/22 21:41) Troponin I Fs (10/28/22 21:41) Lactic Acid Analyzer (10/28/22 21:41) Creatine Kinase (10/28/22 21:41) Blood Culture (10/28/22 21:41) Chest 1 View Ap/Pa Only (10/28/22 21:41) Pelvis (Ap) (10/28/22 21:41) Shoulder 3 View Right (10/28/22 21:41) Hip 2-3 View Left (10/28/22 21:41) Ct Head/Cervical Spine Wo (10/28/22 21:41) Morphine Injection (Morphine Injection (10/28/22 21:44) Ondansetron Injection (Zofran Injectio (10/28/22 21:45) Ns Iv 1000 Ml (Sodium Chloride 0.9%) (10/28/22 21:45) Iohexol Injection (Omnipaque 350 Mg/Ml 1 (10/28/22 22:00) Sodium Chloride Flush (Catheter Flush Sy (10/28/22 22:00) Ns (Ivpb) (Sodium Chloride 0.9% Ivpb Bag (10/28/22 22:00) Received Contrast (Hold Metformin- Contr (10/28/22 22:00) Blood Culture (10/28/22 22:00) Manual Differential (10/28/22 21:50) Ct Chest/Abdomen/Pelvis W (10/28/22 22:43) Ceftriaxone 1 Gm Pre-Mix (Rocephin 1 Gm (10/28/22 23:00) Lactic Acid Analyzer (10/28/22 23:40) Normal Saline Bolus 1,000ml (10/29/22 00:15) Medications Given in ED Current Medications Medications Dose Ordered Sig/Glenny Route Start Time Stop Time Status Last Admin Dose Admin Ceftriaxone Sodium/Dextrose 50 ml @ 100 mls/hr ONCE ONCE IV 10/28/22 23:00 10/28/22 23:29 DC 10/28/22 23:22 100 MLS/HR Iohexol 100 ml ONCE ONCE IV 10/28/22 22:00 10/28/22 22:01 DC 10/28/22 22:56 100 ML Ondansetron HCl 4 mg ONCE ONCE IVP 10/28/22 21:45 10/28/22 21:46 DC 10/28/22 23:20 4 MG Sodium Chloride 10 ml NEEDED PRN IV 10/28/22 22:00 10/28/22 22:57 10 ML Sodium Chloride 100 ml ONCE ONCE IV 10/28/22 22:00 10/28/22 22:01 DC 10/28/22 22:56 100 ML Vital Signs/I&O 10/28/22 21:35 Temp 36.6 Pulse 103 Resp 20 B/P (MAP) 124/67 (86) Pulse Ox 100 O2 Delivery Room Air Capillary Refill : Departure Communication (Admissions) CT head//cervical spine: CT chest/abdomen/pelvis: Chest x-ray: No acute cardiopulmonary disease Pelvis/left hip: Left intratrochanteric fracture EKG: Sinus rhythm, rate 75, normal VT, QRS intervals T wave inversions of septal leads without ST elevation. Patient with recurrent fall with left hip pain/injury with hip fracture on x- ray. Patient remain on the floor upwards of 10 hours. He is normothermic does not have evidence pressure sore or injury. CK level is a send out and is pending. CT imaging of head, neck, chest otherwise unremarkable. Note patient does have elevated white blood cell count with left shift and lactic acid. Vital signs are stable this is likely related to stress reaction and dehydration. However, sepsis with unknown source cannot be ruled out. Cultures obtained and empiric IV Rocephin given. Sent to [facility] does not currently have orthopedic coverage today. Patient requests transfer to [facility] Impression Primary Impression: Closed left hip fracture Additional Impressions: Accidental fall Leukocytosis Disposition: XFER SHT-TRM HOSP Condition: Stable Transfer Transfer Reason: Exceeds level of care Time Spoke to Accepting Phy: 00:[address] Watters accepted to [facility] emergency department Method of Transfer: EMS Departure-Patient Inst. Referrals: COREY MONACO MD (PCP/Family) Primary Care Physician MISTY ROTHMAN DO Oct 28, 2022 21:49
[2022-10-28] MEDS ORDERED: NS 100 ML (IVPB) BAG IV ONE (22:00)
[2022-10-28] MEDS ORDERED: CATHETER FLUSH 10 ML SYR IV PRN (22:00)
[2022-10-28] MEDS ORDERED: IOHEXOL 350 MG/ML 100 ML (OMNIPAQUE 350) VIAL IV ONE (22:00)
[2022-10-28] MEDS ORDERED: HOLD METFORMIN - RECEIVED CONTRAST 20 ML VIAL IV SCH (22:00)
[2022-10-28 22:27] LABS: BASOPHILS % (AUTO) 0 % (0-10); EOSINOPHILS % (AUTO) 0 % (0-10); HEMATOCRIT 41 % (40-54); HEMOGLOBIN 13.2 g/dL (13.3-17.7); LYMPHOCYTES # (AUTO) 0.4 10^3/uL (1.0-4.0); LYMPHOCYTES % (AUTO) 2 % (12-44); MEAN CORPUSCULAR HEMOGLOBIN 29 pg (25-34); MEAN CORPUSCULAR HGB CONC 32 g/dL (32-36); MEAN CORPUSCULAR VOLUME 91 fL (80-99); MEAN PLATELET VOLUME 10.5 fL (9.0-12.2); MONOCYTES # (AUTO) 0.8 10^3/uL (0.0-1.0); MONOCYTES % (AUTO) 5 % (0-12); NEUTROPHILS # (AUTO) 15.6 10^3/uL (1.8-7.8); NEUTROPHILS % (AUTO) 93 % (42-75); PLATELET COUNT 140 10^3/uL (130-400); WHITE BLOOD COUNT 16.9 10^3/uL (4.3-11.0)
[2022-10-28 22:31] LABS: BILIRUBIN,TOTAL 0.5 MG/DL (0.1-1.0); BUN/CREATININE RATIO 24; CALCIUM 8.3 MG/DL (8.5-10.1); CARBON DIOXIDE 20 MMOL/L (21-32); CHLORIDE 106 MMOL/L (98-107); CREATININE SERUM 0.85 MG/DL (0.60-1.30); GFR ESTIMATED 84; GLUCOSE 228 MG/DL (70-105); POTASSIUM 4.4 MMOL/L (3.6-5.0); SODIUM 141 MMOL/L (135-145)
[2022-10-28 22:32] LABS: ALANINE AMINOTRANSFERASE 14 U/L (0-55); ALBUMIN 3.6 GM/DL (3.2-4.5); ALKALINE PHOSPHATASE 102 U/L (40-136); TOTAL PROTEIN 5.8 GM/DL (6.4-8.2)
[2022-10-28 22:42] LABS: BAND NEUTROPHILS 9 %; HYPOCHROMASIA 1+; LYMPHOCYTES % (MANUAL) 2 %; MONOCYTES % (MANUAL) 4 %; NEUTROPHILS % (MANUAL) 85 %; PLATELET ESTIMATE NORMAL
[2022-10-28] MEDS ORDERED: cefTRIAXone 1 GM PRE-MIX 50 ML IV ONE (23:00)
[2022-10-29] MEDS ORDERED: NS IV 1000 ML 1,000 ML IV SCH (00:15)
[2022-10-29 00:56] LABS: CREATINE KINASE 916 U/L (30-200)
[2022-10-29 01:03] LABS: BILIRUBIN,URINE NEGATIVE (NEGATIVE); CLARITY,URINE SL CLOUDY; GLUCOSE, URINE (UA) NEGATIVE (NEGATIVE); KETONES,URINE TRACE (NEGATIVE); LEUKOCYTE ESTERASE ,URINE NEGATIVE (NEGATIVE); NITRITE,URINE NEGATIVE (NEGATIVE); PROTEIN,URINE NEGATIVE (NEGATIVE)
[2022-10-29 01:10] LABS: BACTERIA,URINE NEGATIVE /HPF; COLOR,URINE DARK YELLOW; SQUAMOUS EPITHELIAL CELL,UR RARE /HPF; WBC,URINE 0-2 /HPF
[2022-10-29 01:11] LABS: CALCIUM OXALATE CRYSTALS,UR FEW /LPF; HYALINE CASTS, URINE 25-50 /LPF; RENAL EPITHELIAL CELLS,URINE 0-2 /HPF
[2022-10-29] MEDS ORDERED: morphine INJ 10 MG/ML 1ML (SYR OR VIAL) ONE (01:11)
[2022-10-29] MEDS ORDERED: morphine INJ 10 MG/ML 1ML (SYR OR VIAL) IVP STA (01:18)
--- NOTE | 2022-10-29 05:37 | Diagnostic Imaging Report ---
PROCEDURE: CT head and CT cervical spine without contrast. TECHNIQUE: Multiple contiguous axial images were obtained through the brain and cervical spine without the use of intravenous contrast. Sagittal and coronal reformations through the cervical spine were then performed. Auto Exposure Controls were utilized during the CT exam to meet ALARA standards for radiation dose reduction. INDICATION: Trauma patient injured in fall, presents with headache and neck pain. COMPARISONS: 02/12/2021 CT head without contrast: FINDINGS: Midline structures are not displaced. There are senescent changes with involutional changes with extensive generalized atrophy. There is background chronic areas of microvascular ischemic change. There is a previous right frontal parietal infarct with associated encephalomalacia. This is new since February 2021. There is no midline shift. Bryant-white differentiation is reasonably well maintained and there is no sulcal effacement. There are no abnormal extra-axial fluid collections or hemorrhage. Basilar cisterns appear normal. Sinuses, orbits, and mastoid air cells are unremarkable. Bone windows show no calvarial changes. IMPRESSION: 1. Senescent brain with involutional changes and generalized atrophy with prominent ventricles most likely due to ex vacuo dilatation from atrophy. 2. 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 This, however, is new since February 2021. Otherwise, no acute findings identified by nonenhanced CT criteria. CT cervical spine with reconstructions: FINDINGS: Axial images and sagittal and coronal reconstructions of the cervical spine show [id number] cervical spondylosis with slight reversal of the upper cervical lordosis. There is endplate sclerosis with marginal osteophytes with loss of disc space height most severe from C3 through C6. Multilevel hypertrophic facet changes also seen. Vertebral heights appear reasonably well-maintained. No definite evidence of acute fracture or acute subluxation seen. Prevertebral soft tissue as well as relationship of the dens to the lateral mass of C1 is normal. The parapharyngeal and paraspinous soft tissues are also unremarkable. There is bilateral carotid bifurcation disease with calcific atherosclerosis. Lung apices are clear and superior mediastinum appears grossly unremarkable. IMPRESSION: 1. [id number] cervical spondylosis but no evidence of acute fracture or acute subluxation seen. 2. 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 Dictated by: Dictated on workstation # [id number]
--- NOTE | 2022-10-29 07:41 | Diagnostic Imaging Report ---
INDICATION: Chest trauma from a fall. Portable chest 10:18 PM Heart and mediastinum are normal. Lungs are clear. There are no effusions or pneumothoraces. IMPRESSION: No acute abnormalities in the chest. Dictated by: Dictated on workstation # [id number]
--- NOTE | 2022-10-29 08:18 | Diagnostic Imaging Report ---
EXAMINATION: CT chest, abdomen and pelvis with intravenous contrast. TECHNIQUE: Multiple contiguous axial images were obtained through the chest, abdomen and pelvis after the uneventful administration of intravenous contrast. All CT scans use one or more of the following dose optimizing techniques: automated exposure control, MA and/or KvP adjustment based on patient size and exam type or iterative reconstruction. HISTORY: Chest and abdomen injury COMPARISON: 08/27/2022 FINDINGS: There is no edema or pneumonia. No pleural effusion. No pneumothorax. No suspicious nodules. There is a small fissural lymph node in the right lung. There is no axillary or supraclavicular lymphadenopathy. There is no mediastinal lymphadenopathy. Heart size is normal. There are mild coronary artery calcifications. No pericardial effusion. Aorta is normal in caliber. The liver is normal without focal lesion. There is no biliary ductal dilation. There are stones in the gallbladder. Pancreas is normal. Spleen is normal. Adrenal glands are normal. There is a simple cyst in left kidney. No suspicious renal lesion. There is no hydronephrosis. There is an unchanged large bladder stone measuring 1.5 cm. There are a few bladder diverticula. Bowel is normal in caliber without obstruction or inflammation. No free fluid or air. No abdominal or pelvic lymphadenopathy. Aorta is normal in caliber without aneurysm. There is a chronic severe L1 compression fracture. There is a chronic mild L4 compression fracture. There is a new possibly acute T8 compression fracture. There is a varus angulated acute left intertrochanteric fracture. IMPRESSION: 1. Acute varus angulated left intertrochanteric fracture. 2. New possibly acute T8 compression fracture. Dictated by: Dictated on workstation # [id number]
--- NOTE | 2022-10-29 08:28 | Diagnostic Imaging Report ---
INDICATION: Left hip pain 2 views of left hip show comminuted intertrochanteric fracture left hip with reduction of the femoral angle just reduced to 90 degrees. There is compression of the lesser trochanter. IMPRESSION: Comminuted intertrochanteric fracture left hip Dictated by: Dictated on workstation # [id number]
--- NOTE | 2022-10-29 08:29 | Diagnostic Imaging Report ---
INDICATION: Left hip injury AP view pelvis shows a comminuted fracture of the left hip with reduction of the femoral angle. The pelvic ring appears to be grossly intact. Right hip appears be grossly intact. Obturator rings appear to be intact. IMPRESSION: Comminuted intertrochanteric fracture of the left hip. Dictated by: Dictated on workstation # [id number]
--- NOTE | 2022-10-30 07:46 | Diagnostic Imaging Report ---
EXAMINATION: Left shoulder radiographs, 3 views. COMPARISON: Left shoulder radiographs August 21, 2022. HISTORY: 87-year-old male, fall. Left shoulder pain. FINDINGS: The bones appear likely demineralized. There is an oblique essentially nondisplaced fracture of the lateral third of the distal clavicle. There is no intra-articular fracture extension. The acromioclavicular joint is normally aligned. The humeral head is normally positioned relative to the glenoid. There are left-sided rib deformities which appear most likely chronic in age. IMPRESSION: 1. Essentially nondisplaced oblique fracture of the lateral third of the left clavicle. 2. Normally aligned acromioclavicular joint. 3. Unremarkable glenohumeral joint assessment. 4. The bones are likely demineralized. 5. Left-sided rib deformities which are most likely chronic in age. Dictated by: Dictated on workstation # [id number]
== END 2022-10-29 01:20 | disposition short-term general hospital (02) ==
LOC: EDUNIT# 21:35 → ER FS 21:42
DX: S72.142A Displaced intertrochanteric fracture of left femur, initial encounter for closed fracture (principal); D72.829 Elevated white blood cell count, unspecified; G45.9 Transient cerebral ischemic attack, unspecified; Z79.02 Long term (current) use of antithrombotics/antiplatelets; Z28.310 Unvaccinated for COVID-19; W18.30XA Fall on same level, unspecified, initial encounter; Y92.015 Private garage of single-family (private) house as the place of occurrence of the external cause
CPT/HCPCS: 36415; 70450; 71045; 71260; 72125; 72170; 73030; 73502; 74177; 80053; 81000; 82550; 83605; 84484; 85007; 85027; 87040; 93005

== ENCOUNTER 2022-11-06 13:56 | Emergency (ER) | payer MEDICARE ==
[2022-11-06] MEDS ORDERED: SODIUM BICARB 8.4% 50 MEQ/50 ML (ABBOTT) SYR INJ ONE (13:59)
[2022-11-06] MEDS ORDERED: ETOMIDATE IV SOLN 20 MG/10 ML VIAL IV ONE (13:59)
[2022-11-06] MEDS ORDERED: ATROPINE INJECTION 1 MG/10 ML SYR (ABBOTT) INJ ONE (13:59)
[2022-11-06] MEDS ORDERED: ROCURONIUM 50 MG/5 ML (ZEMURON) VIAL IV ONE (13:59)
[2022-11-06] MEDS ORDERED: EPINEPHrine 0.1 MG/ML 10 ML (HOSPIRA) SYR IJ ONE (13:59)
[2022-11-06] MEDS ORDERED: fentaNYL INJ 100 MCG/2 ML AMP IV ONE (13:59)
[2022-11-06] MEDS ORDERED: SUCCINYLCHOLINE INJ 20 MG/1 ML 10 ML VIAL INJ ONE (13:59)
[2022-11-06] MEDS ORDERED: NS IV ONE (14:15)
[2022-11-06] MEDS ORDERED: NOREPINEPHRINE 8 MG/250 ML 250 ML IV SCH (14:15)
--- NOTE | 2022-11-06 14:21 | ED General ---
General Chief Complaint: Respiratory Problems Stated Complaint: SOB Nursing Triage Note: PT TO RM 5 BY EMS FROM [facility] WITH C/O SOA. NURSING RN REPORTS THEY O2 STAT 60% AND PLACED PT ON 4L NC, BUT DID NOT MAKE A DIFFERENCE. EMS REPORTS WHEN THEY ARRIVED THEY PLACED PT ON BIPAP AND BP "SOFT". RT HERE AT TIME OF TRIAGE. Source of Information: Caregiver, EMS Exam Limitations: Physical Impairments (Patient unable to contribute to history) (ALENA HOANG APRN) History of Present Illness Date Seen by Provider: Nov 06, 2022 Time Seen by Provider: 13:58 Initial Comments 87-year-old male presents via EMS from [facility] for hypoxia and respiratory distress. [facility] stated they found him with an oxygenation saturation in the 60s, placed him on 4 L of oxygen which increased his O2 slightly, then placed him on a nonrebreather and called EMS. [facility] denies giving any pain medications today. He is at the rehabilitation center due to a recent hip fracture and surgery which was on October 28. EMS placed him on a CPAP which brought his oxygen up to the 90s. They also started an IV and gave 100 cc of fluids for a low blood pressure, reported that their last blood pressure reading was approximately 100 systolic. [facility] reported that they recently took him off his Lasix. Patient is responsive to verbal stimuli, but unable to contribute to history. [facility] reports he is a full code. (ALENA HOANG APRN) Allergies and Home Medications Allergies Coded Allergies: No Known Drug Allergies (Unverified , 02/12/21) Patient Home Medication List Home Medication List Reviewed: Yes (ALENA HOANG APRN) Acetaminophen (Tylenol Arthritis) 650 Mg Tablet.er, 650 MG PO Q6H PRN for ARTHRITIS PAIN, (Reported) Entered as Reported by: CODEY JOYNER on 02/12/21 1219 Ascorbic Acid (Vitamin C) 500 Mg Capsule, 1,000 MG PO DAILY, (Reported) Entered as Reported by: CODEY JOYNER on 02/12/21 1219 Calcium Carb/Magnesium Oxid/D3 (Calcium Magnesium + D Tablet) 1 Each Tablet, 1 EACH PO DAILY, (Reported) Entered as Reported by: CODEY JOYNER on 02/12/21 1219 Clopidogrel Bisulfate (Clopidogrel) 75 Mg Tablet, 75 MG PO DAILY, (Reported) Entered as Reported by: CANDE WHEELER on 05/01/19 1118 Esomeprazole Magnesium (Esomeprazole Magnesium) 40 Mg Capsule.dr, 40 MG PO DAILY, (Reported) Entered as Reported by: CODEY JOYNER on 02/12/21 1219 Garlic (Garlic) 1 Each Tablet, 1 EACH PO DAILY, (Reported) Entered as Reported by: CODEY JOYNER on 02/12/21 1219 Lisinopril (Lisinopril) 5 Mg Tablet, 5 MG PO 1200, (Reported) Entered as Reported by: CANDE WHEELER on 05/01/19 1118 [place]-3 Fatty Acids/Fish Oil ([place] 3 Fish Oil Softgel) 1 Each Capsule.dr, 2 EACH PO DAILY, (Reported) Entered as Reported by: CODEY JOYNER on 02/12/21 1219 Pravastatin Sodium (Pravastatin Sodium) 20 Mg Tablet, 20 MG PO HS, (Reported) Entered as Reported by: CANDE WHEELER on 05/01/19 1118 Tamsulosin HCl (Flomax) 0.4 Mg Cap, 0.4 MG PO HS, (Reported) Entered as Reported by: CODEY JOYNER on 02/12/21 121 Thiamine Mononitrate (Vitamin B-1) 100 Mg Tablet, 100 MG PO DAILY, (Reported) Entered as Reported by: CODEY JOYNER on 02/12/21 121 Review of Systems Review of Systems Constitutional: see HPI (ALENA HOANG APRN) Past Yabixcb-Yqjkga-Zqhtxj Hx Immunizations Up To Date First/Initial COVID19 Vaccinat: Unvaccinated Second COVID19 Vaccination Caleb: Unknown Third COVID19 Vaccination Date: Unknown (ALENA HOANG APRN) Seasonal Allergies Seasonal Allergies: No (ALENA HOANG APRN) Past Medical History Surgery/Hospitalization HX: HTN; Chronic back pain/Hx L1 burst fx; BPH; High cholesterol; GERD; COPD; O.A.; TIA; CVA; Alvarez's Palsy; Depression; Frequent falls; Hx Non-displaced left lateral end clavicle, Hx numerous left rib fxs, Cataract surgery Surgeries: Yes (cataracts) Respiratory: Yes COPD Cardiac: Yes Hypertension Neurological: Yes ([place]) Stroke, TIA Genitourinary: Yes Benign Prostatic Hyperpl Gastrointestinal: No Musculoskeletal: Yes Arthritis, Back Injury Endocrine: No HEENT: No Cancer: No Psychosocial: No Integumentary: No (ALENA HOANG APRN) Physical Exam-Suspected Sepsis Physical Exam Vital Signs Vital Signs - First Documented 11/06/22 11/06/22 11/06/22 13:59 14:44 15:30 Temp 35.9 Pulse 141 Resp 14 B/P (MAP) 74/42 (53) Pulse Ox 90 O2 Delivery NIV Bilevel O2 Flow Rate 100.00 FiO2 100 (ERICK POSADA MD) Vital Signs Capillary Refill : Less Than 3 Seconds (ALENA HOANG APRN) Blood Pressure Mean: 53 Height, Weight, BMI Height: 5'10.00" Weight: 200lbs. oz. 90.953519sc; 22.00 BMI Method:Stated General Appearance: Mild Distress Neck: Normal Inspection, Supple Respiratory: Respiratory Distress, Rhonci (Right lower) Cardiovascular: No Edema (Currently wearing compression stockings), No Gallop, No JVD, No Murmur, Irregularly Irregular Extremity: Swelling (Swelling around left hip), Other (Bruising around left hip) Neurologic/Psychiatric: Other (Responds to verbal stimuli) Skin: normal color, warm/dry (ALENA HOANG APRN) Focused Exam Lactate Level 11/06/22 14:16: Lactic Acid Level 4.22*H (ERICK POSADA MD) Progress/Results/Core Measures Suspected Sepsis SIRS Temperature: Pulse: 141 Respiratory Rate: 14 Laboratory Tests 11/06/22 14:16: White Blood Count 15.2H Blood Pressure 74 /42 Mean: 53 11/06/22 14:16: Lactic Acid Level 4.22*H Laboratory Tests 11/06/22 14:16: Creatinine 4.60H, INR Comment 1.1, Platelet Count 319, Total Bilirubin 1.6H (ALENA HOANG APRN) Results/Orders Lab Results Laboratory Tests Test 11/06/22 14:16 11/06/22 14:27 11/06/22 14:40 11/06/22 15:54 Range/Units White Blood Count 15.2 H 4.3-11.0 10^3/uL Red Blood Count 3.79 L 4.30-5.52 10^6/uL Hemoglobin 11.2 L 13.3-17.7 g/dL Hematocrit 35 L 40-54 % Mean Corpuscular Volume 91 80-99 fL Mean Corpuscular Hemoglobin 30 25-34 pg Mean Corpuscular Hemoglobin Concent 33 32-36 g/dL Red Cell Distribution Width 15.1 H 10.0-14.5 % Platelet Count 319 130-400 10^3/uL Mean Platelet Volume 9.8 9.0-12.2 fL Immature Granulocyte % (Auto) 1 % Neutrophils (%) (Auto) 90 H 42-75 % Lymphocytes (%) (Auto) 4 L 12-44 % Monocytes (%) (Auto) 5 0-12 % Eosinophils (%) (Auto) 0 0-10 % Basophils (%) (Auto) 0 0-10 % Neutrophils # (Auto) 13.6 H 1.8-7.8 10^3/uL Lymphocytes # (Auto) 0.6 L 1.0-4.0 10^3/uL Monocytes # (Auto) 0.8 0.0-1.0 10^3/uL Eosinophils # (Auto) 0.0 0.0-0.3 10^3/uL Basophils # (Auto) 0.0 0.0-0.1 10^3/uL Immature Granulocyte # (Auto) 0.1 0.0-0.1 10^3/uL Neutrophils % (Manual) 80 % Lymphocytes % (Manual) 7 % Monocytes % (Manual) 11 % Myelocytes % 1 % Band Neutrophils 1 % Nucleated Red Blood Cells 1 Clumped Platelets OCCASIONAL Polychromasia SLIGHT [place] Cells SLIGHT Prothrombin Time 14.9 H 12.2-14.7 SEC INR Comment 1.1 0.8-1.4 Activated Partial Thromboplast Time 27 24-35 SEC D-Dimer >= 20.00 H 0.00-0.49 UG/ML Sodium Level 131 L 135-145 MMOL/L Potassium Level 4.4 3.6-5.0 MMOL/L Chloride Level 95 L 98-107 MMOL/L Carbon Dioxide Level 18 L 21-32 MMOL/L Anion Gap 18 H 5-14 MMOL/L Blood Urea Nitrogen 76 H 7-18 MG/DL Creatinine 4.60 H 0.60-1.30 MG/DL Estimat Glomerular Filtration Rate 12 BUN/Creatinine Ratio 17 Glucose Level 151 H 70-105 MG/DL Lactic Acid Level 4.22 *H 0.50-2.00 MMOL/L Calcium Level 8.5 8.5-10.1 MG/DL Corrected Calcium 9.0 8.5-10.1 MG/DL Magnesium Level 2.7 H 1.6-2.4 MG/DL Total Bilirubin 1.6 H 0.1-1.0 MG/DL Aspartate Amino Transf (AST/SGOT) 42 H 5-34 U/L Alanine Aminotransferase (ALT/SGPT) 27 0-55 U/L Alkaline Phosphatase 80 40-136 U/L Troponin I 0.050 H <0.028 NG/ML B-Type Natriuretic Peptide 21.8 <100.0 PG/ML Total Protein 6.3 L 6.4-8.2 GM/DL Albumin 3.4 3.2-4.5 GM/DL Influenza Type A (RT-PCR) Not Detected Not Detecte Influenza Type B (RT-PCR) Not Detected Not Detecte SARS-CoV-2 RNA (RT-PCR) Not Detected Not Detecte Blood Gas Puncture Site l radial Blood Gas Patient Temperature 37.0 Arterial Blood pH 7.43 7.37-7.43 Arterial Blood Partial Pressure CO2 29 L 35-45 MMHG Arterial Blood Partial Pressure O2 74 L 79-93 MMHG Arterial Blood HCO3 19 L 23-27 MMOL/L Arterial Blood Total CO2 19.9 L 21.0-31.0 MMOL/L Arterial Blood Oxygen Saturation 96 94-100 % Arterial Blood Base Excess -4.5 L -2.5-2.5 MMOL/L Dann Test Blood Gas Ventilator Setting NO Blood Gas Inspired Oxygen 100% Urine Color YELLOW Urine Clarity CLEAR Urine pH 6.0 5-9 Urine Specific [place] 1.020 1.016-1.022 Urine Protein TRACE H NEGATIVE Urine Glucose (UA) NEGATIVE NEGATIVE Urine Ketones NEGATIVE NEGATIVE Urine Nitrite NEGATIVE NEGATIVE Urine Bilirubin NEGATIVE NEGATIVE Urine Urobilinogen 0.2 < = 1.0 MG/DL Urine Leukocyte Esterase 1+ H NEGATIVE Urine RBC (Auto) 3+ H NEGATIVE Urine RBC 10-25 H /HPF Urine WBC 5-10 H /HPF Urine Squamous Epithelial Cells 5-10 /HPF Urine Crystals PRESENT H /LPF Urine Calcium Oxalate Crystals FEW H /LPF Urine Amorphous Sediment FEW ANDREW URATES H /LPF Urine Bacteria FEW H /HPF Urine Casts NONE /LPF Urine Hyaline Casts RARE /LPF Urine Mucus LARGE H /LPF Urine Culture Indicated CULTURE PENDING (ERICK POSADA MD) Medications Given in ED Current Medications Medications Dose Ordered Sig/Glenny Route Start Time Stop Time Status Last Admin Dose Admin Sodium Chloride 2,040 ml @ 2,040 mls/hr ONCE ONCE IV 11/06/22 14:15 11/06/22 15:14 DC 11/06/22 14:15 2,040 MLS/HR (ERICK POSADA MD) Vital Signs/I&O 11/06/22 11/06/22 11/06/22 11/06/22 13:59 13:59 13:59 14:44 Temp 35.9 Pulse 141 116 Resp 14 B/P (MAP) 74/42 (53) Pulse Ox 90 O2 Delivery NIV Bilevel NIV Bilevel O2 Flow Rate 100.00 11/06/22 15:30 Pulse 111 Resp 18 FiO2 100 (ERICK POSADA MD) Vital Signs/I&O Capillary Refill : Less Than 3 Seconds (ALENA HOANG APRN) Blood Pressure Mean: 53 Progress Note #1: Time: 14:22 Progress Note Patient seen and evaluated, mild respiratory distress, on CPAP by EMS, switched to BiPAP upon arrival. He is alert to verbal stimuli. EMS concerned that pupils are pinpoint, pupils are small but briskly reactive. Some rhonchi noted in right lower lobes otherwise clear. Heart rhythm on monitor shows irregularly irregular rate, EKG ordered. Based on exam and symptoms, concern for sepsis, pneumonia, CHF exacerbation, PE. Work-up initiated including CBC, CMP, troponin, magnesium, lactic acid, D-dimer, coags, blood cultures x2, ABG, chest x-ray, UA, COVID and flu swabs, and EKG. IV fluids ordered 30ml/kg. Progress Note #2: Time: 15:50 Progress Note Patient's status declined, increased respiratory distress, breathing over 30/min over the CPAP. Patient becoming less responsive. Kind of moans to verbal stimuli, but not consistently. Eyes are partially open, but does not seem purposeful, is not looking at staff. Patient intubated by anesthesia at 1504. Patient has coded twice since he has arrived in the ED. Please refer to Dr. Laws's note regarding code documentation. Labs reviewed. CBC shows elevated WBC at 15.2, RBC 3.79, decreased hemoglobin 11.2, decreased hematocrit 35. CMP shows decreased sodium 131, normal potassium 4.4, decreased chloride 95, decreased CO2 18, anion gap elevated 18, BUN elevated at 76, creatinine elevated 4.6, GFR low at 12. Magnesium elevated 2.7. Troponin elevated 0.050. BNP normal at 21.8. Lactic acid critically elevated at 4.22. PT elevated 14.9. INR normal at 1.1. aPTT normal at 27. D-dimer elevated at greater than 20. ABG shows normal pH 7.43, decreased PCO2 29, de creased PO2 of 74, decreased HCO3 19, oxygen saturation 96%, base excess -4.5. COVID and flu negative. Chest x-ray shows in place endotracheal tube, and new bibasilar infiltrates or possibly atelectasis. We will treat with vancomycin and Zosyn for septic pneumonia. Dr. Hirsch, surgery, called for central line placement. He is present in room at this time. Progress Note #3: Time: 16:10 Progress Note Patient coded again, CPR initiated. Please refer to Dr. Muñoz's note regarding code documentation. (ALENA HOANG APRN) ECG Initial ECG Impression Date: Nov 06, 2022 Initial ECG Impression Time: 14:28 Initial ECG Rate: 129 Initial ECG Rhythm: A Fib/Flutter (Irregularly irregular rhythm) Initial ECG Intervals: Normal Initial ECG Comparisson: Changed Comment ST depression noted in V3, V4, V5 (ALENA HOANG APRN) Diagnostic Imaging Diagonstic Imaging: Xray Plain Films/CT/US/NM/MRI: chest Comments NAME: MAE FAUSTIN [facility] REC#: [id number] PT STATUS: REG ER : 1935 PHYSICIAN: ALENA HOANG APRN ADMIT DATE: 11/06/22/ER Signed Date of Exam:11/06/22 CHEST 1 VIEW, AP/PA ONLY INDICATION: Hypoxia. Frontal chest obtained at 3:25 p.m. and compared to 10/28/2022. FINDINGS: New ET tube tip overlies mid trachea. NG tube tip is below the film. There is new bibasilar infiltrate versus atelectasis. There is no pneumothorax or pleural fluid. IMPRESSION: New bibasilar infiltrate versus atelectasis with life support lines as above. Dictated by: Dictated on workstation # [id number] Dict: 11/06/22 153 Trans: 11/06/22 1622 [id number] Interpreted by: AURA SANTILLAN MD Electronically signed by: AURA SANTILLAN MD 11/06/221621 (ERICK POSADA MD) Critical Care Note Critical Care Start Time: 13:58 Stop Time: 16:33 Date of : Nov 06, 2022 Time of : 16:33 Progress This 87-year-old gentleman was brought to the emergency room via EMS with hypoxia and hypotension. He was approximately 10 days post left hip fracture which was surgically repaired at [facility]. [facility]. Upon arrival to the ER fluid resuscitation was promptly initiated. BiPAP was applied. Labs were obtained. It became evident that BiPAP was not going to be sufficient for maintaining his respiratory status. We were having much difficulty obtaining oxygen saturations. Decision was made to intubate. We have been unable to contact family prior to intubation to confirm full CODE STATUS. Per penitentiary report, patient was to be full code. He was intubated at 1504 by nurse welder setter electron beam machine Fady Langston. Patient decompensated despite intubation and fluid resuscitation. At 1529 asystole was noted on the monitor and patient was found to be pulseless. Chest compressions were briefly started. After only a few chest compressions, rhythm was again noted on the monitor and pulse returned. Patient required further sedation and was administered rocuronium 50 mg and fentanyl 50 mcg at 1531. IV fluids were aggressively administered to a goal of 3 L to accomplish 30 mL/kg. Despite fluid resuscitation patient continued to have hypotensive episodes. A Levophed drip was initiated at 1536. Despite starting Levophed, patient had rapidly declining bradycardia at 1538. He eventually was noted to be pulseless at 1539. CPR was again initiated. Epinephrine 1 g IV was administered. Pulse check at 1542 was PEA, and CPR resumed. Pulse was noted at 1544. CPR was halted. Dr. Hirsch was consulted for line placement and presented to the ER at 1550. A femoral line was placed. Extensive clotting in the vessels was noted by Dr. Hirsch during line placement. Femoral line and Ambrocio catheter were placed by 1603. Patient was again noted to be pulseless at 1610 and CPR was resumed. Epinephrine 1 mg IV was administered at 1611. PEA was noted during pulse check at 1613, and CPR resumed. Epinephrine 1 mg IV was administered at 1614. Pulse check at 1616 demonstrated PEA. CPR resumed. Epinephrine 1 mg IV was administered. 1 amp of sodium bicarb was administered at 1617. Pulse check at 1618 demonstrated asystole with no palpable pulse. CPR resumed. At 1620 pulse check revealed asystole with no palpable pulse. Resuscitation efforts were deemed futile at this point. Time of was initially pronounced at 1620. However, patient spontaneously regained pulse at 1622 despite discontinuing mechanical ventilation and CPR. Patient received BVM during this period of time. Pulse eventually ceased at 1630. Patient was definitively pronounced at 1633. Further aggressive care was determined to be futile and undignified, especially given the profound lab abnormalities suggesting extremely poor prognosis. Attempts were made to contact family and DPOA throughout resuscitation efforts. We were not able to contact patient's sons but were able to visit with his [id number] Gladys, and I provided her updates. Family did eventually arrive to the hospital and they were debriefed by me personally. Questions were answered for family. Alena Hoang was the primary ER provider during this patient's care with my assistance. I was present in the room multiple times during the course of his care and consulted in the case. 60 minutes of critical care was provided by Alena Hoang and Dr. Posada. Critical care time included initial assessment of the patient, bedside care, review of labs and imaging studies, discussion with consultants, debriefing with family, etc. (ERICK POSADA MD) Departure Impression Primary Impression: Cardiopulmonary arrest Additional Impressions: Respiratory failure Qualified Codes: J96.01 - Acute respiratory failure with hypoxia Elevated d-dimer Acute kidney injury Sepsis Qualified Codes: A41.9 - Sepsis, unspecified organism; R65.21 - Severe sepsis with septic shock; J96.01 - Acute respiratory failure with hypoxia Disposition: 20 Condition: Departure-Patient Inst. Referrals: SELF,MARCUS AZUL (PCP/Family) Primary Care Physician ATTENDING PHYSICIAN NOTE: I was physically present as attending physician in the emergency department during the care of this patient. Alena Hoang APRN and I comanaged the evaluation and care of this patient. See critical care notes above. (ERICK POSADA MD) ALENA HOANG APRN Nov 06, 2022 14:21 ERICK POSADA MD Nov 06, 2022 18:54
[2022-11-06 14:23] LABS: BASOPHILS % (AUTO) 0 % (0-10); EOSINOPHILS % (AUTO) 0 % (0-10); HEMATOCRIT 35 % (40-54); HEMOGLOBIN 11.2 g/dL (13.3-17.7); LYMPHOCYTES # (AUTO) 0.6 10^3/uL (1.0-4.0); LYMPHOCYTES % (AUTO) 4 % (12-44); MEAN CORPUSCULAR HEMOGLOBIN 30 pg (25-34); MEAN CORPUSCULAR HGB CONC 33 g/dL (32-36); MEAN CORPUSCULAR VOLUME 91 fL (80-99); MEAN PLATELET VOLUME 9.8 fL (9.0-12.2); MONOCYTES # (AUTO) 0.8 10^3/uL (0.0-1.0); MONOCYTES % (AUTO) 5 % (0-12); NEUTROPHILS # (AUTO) 13.6 10^3/uL (1.8-7.8); NEUTROPHILS % (AUTO) 90 % (42-75); PLATELET COUNT 319 10^3/uL (130-400); WHITE BLOOD COUNT 15.2 10^3/uL (4.3-11.0)
[2022-11-06 14:34] LABS: ALBUMIN 3.4 GM/DL (3.2-4.5); POTASSIUM 4.4 MMOL/L (3.6-5.0)
[2022-11-06 14:35] LABS: CALCIUM 8.5 MG/DL (8.5-10.1)
[2022-11-06 14:37] LABS: TOTAL PROTEIN 6.3 GM/DL (6.4-8.2)
[2022-11-06 14:38] LABS: BILIRUBIN,TOTAL 1.6 MG/DL (0.1-1.0)
[2022-11-06 14:39] LABS: BAND NEUTROPHILS 1 %; BURR CELLS SLIGHT; LYMPHOCYTES % (MANUAL) 7 %; MONOCYTES % (MANUAL) 11 %; MYELOCYTES % 1 %; NEUTROPHILS % (MANUAL) 80 %; NUCLEATED RED BLOOD CELLS 1; PLATELET CLUMPS OCCASIONAL; POLYCHROMASIA SLIGHT
[2022-11-06 14:40] LABS: CREATININE SERUM 4.6 MG/DL (0.60-1.30)
[2022-11-06 14:44] VITALS: BP 67/51
[2022-11-06 14:49] LABS: ABG BASE EXCESS -4.5 MMOL/L (-2.5-2.5); ABG OXYGEN SATURATION 96 % (94-100); ABG PCO2 29 MMHG (35-45); ABG PH 7.43 (7.37-7.43); ABG PO2 74 MMHG (79-93); ABG TCO2 19.9 MMOL/L (21.0-31.0)
[2022-11-06] MEDS ORDERED: LIDOCAINE UROJET 2% GEL 10 ML PKG ONE (14:50)
[2022-11-06 14:52] LABS: INSPIRED O2 100%; VENTILATOR NO
[2022-11-06 14:56] LABS: FIBRIN DEGRADATION PRODUCTS >= 20.00 UG/ML (0.00-0.49); INR 1.1 (0.8-1.4); PARTIAL THROMBOPLASTIN TIME 27 SEC (24-35); PROTHROMBIN TIME PATIENT 14.9 SEC (12.2-14.7)
[2022-11-06] MEDS ORDERED: LIDOCAINE UROJET 2% GEL 10 ML PKG TOP ONE (15:00)
--- NOTE | 2022-11-06 15:24 | Anesthesia-Procedure Note ---
Procedures/Interventions Procedure Start/Stop/Diagnosis Date of Procedure: Nov 06, 2022 Start Time: 15:02 Stop Time: 15:10 Intubation RSI: Yes 100% pre-Ox, [id number]: Yes Intubation Method: orotracheal Forbes (size used 0-4): 2 Videoscope used: No Grade View: 1 Medications: Etomidate (20) Mask Ventilation: positive Positive End Tide CO2: Yes Breath Sounds after Intubation: bilateral-equal ETT Securred @ (cm): 22 Intubated with ease: Yes Intubation Complications: no complications AMARIS MEEK CRNA Nov 06, 2022 15:24
[2022-11-06] MEDS ORDERED: NOREPINEPHRINE 8 MG/250 ML 250 ML IV ONE (15:31)
[2022-11-06] MEDS ORDERED: PROPOFOL DRIP (ICU) 0 ML IV ONE (15:31)
[2022-11-06 15:36] VITALS: BP 87/29
--- NOTE | 2022-11-06 15:38 | Diagnostic Imaging Report ---
INDICATION: Hypoxia. Frontal chest obtained at 3:25 p.m. and compared to 10/28/2022. FINDINGS: New ET tube tip overlies mid trachea. NG tube tip is below the film. There is new bibasilar infiltrate versus atelectasis. There is no pneumothorax or pleural fluid. IMPRESSION: New bibasilar infiltrate versus atelectasis with life support lines as above. Dictated by: Dictated on workstation # [id number]
[2022-11-06 16:09] LABS: BILIRUBIN,URINE NEGATIVE (NEGATIVE); CLARITY,URINE CLEAR; COLOR,URINE YELLOW; GLUCOSE, URINE (UA) NEGATIVE (NEGATIVE); KETONES,URINE NEGATIVE (NEGATIVE); LEUKOCYTE ESTERASE ,URINE 1+ (NEGATIVE); NITRITE,URINE NEGATIVE (NEGATIVE); PROTEIN,URINE TRACE (NEGATIVE)
[2022-11-06] MEDS ORDERED: ENOXAPARIN 100 MG/1 ML (LOVENOX) SYR SC SCH (16:15)
[2022-11-06 16:26] LABS: AMORPHOUS SEDIMENT,UR FEW AMOR URATES /LPF; BACTERIA,URINE FEW /HPF
[2022-11-06 16:28] LABS: CALCIUM OXALATE CRYSTALS,UR FEW /LPF; HYALINE CASTS, URINE RARE /LPF
--- NOTE | 2022-11-06 18:31 | Progress Note - Surgery ---
Subjective Date Seen by a Provider: Nov 06, 2022 Time Seen by a Provider: 15:35 Subjective/Events-last exam Esteban Augustin is a 87M who presented to the ED from [facility] with shortness of breath and resp distress. Had low O2 sats in the 60s. Recent hip fracture with surgical repair on 10/28/22. We were consulted for placement of a central line. Patient initially coded before arrival to room prior to procedure. ROSC was obtained and patient stabilized by ED staff. Patient was seen and evaluated in the ED with successful R femoral vein central venous access. Review of Systems General: Other (intubated and on pressors post code) Unable to obtain. Patient intubated and unresponsive to stimuli. Focused Exam Lactate Level 11/06/22 14:16: Lactic Acid Level 4.22*H Objective Exam Vital Signs Date Time Temp Pulse Resp B/P (MAP) Pulse Ox O2 Delivery O2 Flow Rate FiO2 11/06/22 15:30 111 18 100 11/06/22 14:44 116 100.00 11/06/22 13:59 90 NIV Bilevel 11/06/22 13:59 NIV Bilevel 11/06/22 13:59 35.9 141 14 74/42 (53) Capillary Refill : Less Than 3 Seconds General Appearance: Severe Distress, Other (Intubated) Neck: Normal Inspection, Supple Respiratory: Respiratory Distress, Rhonci (Right lower), Other (ET tube in place) Cardiovascular: No Edema (Currently wearing compression stockings), No Murmur, Irregularly Irregular Gastrointestinal: soft; No distended Extremity: Normal Inspection, No Pedal Edema Neurologic/Psychiatric: Other (not responsive to stimuli.) Skin: No Diaphoresis, No Erythema; Pallor Lymphatic: No Adenopathy Results Lab Laboratory Tests 11/06/22 14:16: White Blood Count 15.2H, Red Blood Count 3.79L, Hemoglobin 11.2L, Hematocrit 35L , Mean Corpuscular Volume 91, Mean Corpuscular Hemoglobin 30, Mean Corpuscular Hemoglobin Concent 33, Red Cell Distribution Width 15.1H, Platelet Count 319, Mean Platelet Volume 9.8, Immature Granulocyte % (Auto) 1, Neutrophils (%) (Auto) 90H, Lymphocytes (%) (Auto) 4L, Monocytes (%) (Auto) 5, Eosinophils (%) (Auto) 0, Basophils (%) (Auto) 0, Neutrophils # (Auto) 13.6H, Lymphocytes # (Auto) 0.6L, Monocytes # (Auto) 0.8, Eosinophils # (Auto) 0.0, Basophils # (Auto) 0.0, Immature Granulocyte # (Auto) 0.1, Neutrophils % (Manual) 80, Lymphocytes % (Manual) 7, Monocytes % (Manual) 11, Myelocytes % 1, Band Neutrophils 1, Nucleated Red Blood Cells 1, Clumped Platelets OCCASIONAL, Polychromasia SLIGHT, [place] Cells SLIGHT, Prothrombin Time 14.9H, INR Comment 1.1, Activated Partial Thromboplast Time 27, D-Dimer >= 20.00H, Sodium Level 131L, Potassium Level 4.4, Chloride Level 95L, Carbon Dioxide Level 18L, Anion Gap 18H, Blood Urea Nitrogen 76H, Creatinine 4.60H, Estimat Glomerular Filt ration Rate 12, BUN/Creatinine Ratio 17, Glucose Level 151H, Lactic Acid Level 4.22*H, Calcium Level 8.5, Corrected Calcium 9.0, Magnesium Level 2.7H, Total Bilirubin 1.6H, Aspartate Amino Transf (AST/SGOT) 42H, Alanine Aminotransferase (ALT/SGPT) 27, Alkaline Phosphatase 80, Troponin I 0.050H, B-Type Natriuretic Peptide 21.8, Total Protein 6.3L, Albumin 3.4 11/06/22 14:27: Influenza Type A (RT-PCR) Not Detected, Influenza Type B (RT-PCR) Not Detected, SARS-CoV-2 RNA (RT-PCR) Not Detected 11/06/22 14:40: Blood Gas Puncture Site l radial, Blood Gas Patient Temperature 37.0, Arterial Blood pH 7.43, Arterial Blood Partial Pressure CO2 29L, Arterial Blood Partial Pressure O2 74L, Arterial Blood HCO3 19L, Arterial Blood Total CO2 19.9L, Arterial Blood Oxygen Saturation 96, Arterial Blood Base Excess -4.5L, Dann Test , Blood Gas Ventilator Setting NO, Blood Gas Inspired Oxygen 100% 11/06/22 15:54: Urine Color YELLOW, Urine Clarity CLEAR, Urine pH 6.0, Urine Specific [place] 1.020, Urine Protein TRACEH, Urine Glucose (UA) NEGATIVE, Urine Ketones NEGATIVE, Urine Nitrite NEGATIVE, Urine Bilirubin NEGATIVE, Urine Urobilinogen 0.2, Urine Leukocyte Esterase 1+H, Urine RBC (Auto) 3+H, Urine RBC 10-25H, Urine WBC 5-10H, Urine Squamous Epithelial Cells 5-10, Urine Crystals PRESENTH, Urine Calcium Oxalate Crystals FEWH, Urine Amorphous Sediment FEW ANDREW URATESH, Urine Bacteria FEWH, Urine Casts NONE, Urine Hyaline Casts RARE, Urine Mucus LARGEH, Urine Culture Indicated CULTURE PENDING Assessment/Plan Assessment/Plan Assessment/Plan Respiratory failure of undetermined etiology requiring intubation- likely PE Cardiac arrest Central line placed in R femoral vein w/o procedural complications. ZAN KWOK Nov 06, 2022 18:31
--- NOTE | 2022-11-06 18:50 | Consultation - Surgery ---
ZAN KWOK 11/06/22 1850: History of Present Illness History of Present Illness Patient Consulted On(kwame/time) 11/06/22 18:41 Date Seen by Provider: Nov 06, 2022 Time Seen by Provider: 15:35 History of Present Illness Esteban Augustin is an 87M who presented to the ED with respiratory distress and decreased O2 sats. We were consulted for placement of a central line. Shortly after my arrival to the room in the ED he coded. ROSC was obtained by ED staff and patient stabilized. Patient was seen and evaluated with successful R femoral central venous access obtained without issue. Allergies and Home Medications Allergies Coded Allergies: No Known Drug Allergies (Unverified , 02/12/21) Patient Home Medication List Home Medication List Reviewed: Yes Acetaminophen (Tylenol Arthritis) 650 Mg Tablet.er, 650 MG PO Q6H PRN for ARTHRITIS PAIN, (Reported) Entered as Reported by: CODEY JOYNER on 02/12/21 121 Ascorbic Acid (Vitamin C) 500 Mg Capsule, 1,000 MG PO DAILY, (Reported) Entered as Reported by: CODEY JOYNER on 02/12/21 121 Calcium Carb/Magnesium Oxid/D3 (Calcium Magnesium + D Tablet) 1 Each Tablet, 1 EACH PO DAILY, (Reported) Entered as Reported by: CODEY JOYNER on 02/12/21 121 Clopidogrel Bisulfate (Clopidogrel) 75 Mg Tablet, 75 MG PO DAILY, (Reported) Entered as Reported by: CANDE WHEELER on 05/01/19 111 Esomeprazole Magnesium (Esomeprazole Magnesium) 40 Mg Capsule.dr, 40 MG PO DAILY, (Reported) Entered as Reported by: CODEY JOYNER on 02/12/21 1219 Garlic (Garlic) 1 Each Tablet, 1 EACH PO DAILY, (Reported) Entered as Reported by: CODEY JOYNER on 02/12/21 121 Lisinopril (Lisinopril) 5 Mg Tablet, 5 MG PO 1200, (Reported) Entered as Reported by: CANDE WHEELER on 05/01/19 1118 [place]-3 Fatty Acids/Fish Oil ([place] 3 Fish Oil Softgel) 1 Each Capsule.dr, 2 EACH PO DAILY, (Reported) Entered as Reported by: CODEY JOYNER on 02/12/21 1219 Pravastatin Sodium (Pravastatin Sodium) 20 Mg Tablet, 20 MG PO HS, (Reported) Entered as Reported by: CANDE WHEELER on 05/01/19 1118 Tamsulosin HCl (Flomax) 0.4 Mg Cap, 0.4 MG PO HS, (Reported) Entered as Reported by: CODEY JOYNER on 02/12/21 1219 Thiamine Mononitrate (Vitamin B-1) 100 Mg Tablet, 100 MG PO DAILY, (Reported) Entered as Reported by: CODEY JOYNER on 02/12/21 1219 Past Cklbxcl-Ugcyiq-Hyqlfm Hx Patient Social History Smoking Status: Unknown if Ever Smoked (unable to obtain due to patient status) Former Smoker, Quit: Sep 08, 2010 Type Used: Cigarettes 2nd Hand Smoke Exposure: No Recent Hopitalizations: No Alcohol Use?: Unable to obtain Have you traveled recently?: No Seasonal Allergies Seasonal Allergies: No Surgeries History of Surgeries: Yes (cataracts) Surgeries: Eye Surgery Respiratory History of Respiratory Disorde: Yes Respiratory Disorders: COPD Cardiovascular History of Cardiac Disorders: Yes Cardiac Disorders: Hypertension Neurological History of Neurological Disord: Yes (Fraser palsey) Neurological Disorders: Stroke, TIA Genitourinary History of Genitourinary Disor: Yes Genitourinary Disorders: Benign Prostatic Hyperpl Gastrointestinal History of Gastrointestinal Di: No Musculoskeletal History of Musculoskeletal Dis: Yes Musculoskeletal Disorders: Arthritis, Back Injury Endocrine History of Endocrine Disorders: No HEENT History of HEENT Disorders: No Cancer History of Cancer: No Psychosocial History of Psychiatric Problem: No Integumentary History of Skin or Integumenta: No Family Medical History Significant Family History: Other Conditions/Hx (Unable to obtain due to patient status) Review of Systems-General ROS-Unable to Obtain: Unable to obtain. Intubated and unresponsive to stimuli Respiratory: short of breath, wheezing Skin: other (pallor) Physical Exam-General Problems Physical Exam Vital Signs Vital Signs - First Documented 11/06/22 11/06/22 11/06/22 13:59 14:44 15:30 Temp 35.9 Pulse 141 Resp 14 B/P (MAP) 74/42 (53) Pulse Ox 90 O2 Delivery NIV Bilevel O2 Flow Rate 100.00 FiO2 100 Capillary Refill : Less Than 3 Seconds General Appearance: severe distress HEENT: other (patient does not open eyes for examination) Neck: supple, normal inspection Respiratory: respiratory distress, rhonchi, wheezing Cardiovascular: no JVD, tachycardia Gastrointestinal: soft; No distended Rectal: deferred Extremities: normal inspection, no pedal edema Neurologic/Psychiatric: other (unable to obtain) Skin: cool, pallor Lymphatic: no adenopathy Data Review Labs Laboratory Tests 11/06/22 14:16: White Blood Count 15.2H, Red Blood Count 3.79L, Hemoglobin 11.2L, Hematocrit 35L , Mean Corpuscular Volume 91, Mean Corpuscular Hemoglobin 30, Mean Corpuscular Hemoglobin Concent 33, Red Cell Distribution Width 15.1H, Platelet Count 319, Mean Platelet Volume 9.8, Immature Granulocyte % (Auto) 1, Neutrophils (%) (Auto) 90H, Lymphocytes (%) (Auto) 4L, Monocytes (%) (Auto) 5, Eosinophils (%) (Auto) 0, Basophils (%) (Auto) 0, Neutrophils # (Auto) 13.6H, Lymphocytes # (Auto) 0.6L, Monocytes # (Auto) 0.8, Eosinophils # (Auto) 0.0, Basophils # (Auto) 0.0, Immature Granulocyte # (Auto) 0.1, Neutrophils % (Manual) 80, Lymphocytes % (Manual) 7, Monocytes % (Manual) 11, Myelocytes % 1, Band Neutroph ils 1, Nucleated Red Blood Cells 1, Clumped Platelets OCCASIONAL, Polychromasia SLIGHT, Lorri Cells SLIGHT, Prothrombin Time 14.9H, INR Comment 1.1, Activated Partial Thromboplast Time 27, D-Dimer >= 20.00H, Sodium Level 131L, Potassium Level 4.4, Chloride Level 95L, Carbon Dioxide Level 18L, Anion Gap 18H, Blood Urea Nitrogen 76H, Creatinine 4.60H, Estimat Glomerular Filtration Rate 12, BUN/Creatinine Ratio 17, Glucose Level 151H, Lactic Acid Level 4.22*H, Calcium Level 8.5, Corrected Calcium 9.0, Magnesium Level 2.7H, Total Bilirubin 1.6H, Aspartate Amino Transf (AST/SGOT) 42H, Alanine Aminotransferase (ALT/SGPT) 27, Alkaline Phosphatase 80, Troponin I 0.050H, B-Type Natriuretic Peptide 21.8, Total Protein 6.3L, Albumin 3.4 11/06/22 14:27: Influenza Type A (RT-PCR) Not Detected, Influenza Type B (RT-PCR) Not Detected, SARS-CoV-2 RNA (RT-PCR) Not Detected 11/06/22 14:40: Blood Gas Puncture Site l radial, Blood Gas Patient Temperature 37.0, Arterial Blood pH 7.43, Arterial Blood Partial Pressure CO2 29L, Arterial Blood Partial Pressure O2 74L, Arterial Blood HCO3 19L, Arterial Blood Total CO2 19.9L, Arterial Blood Oxygen Saturation 96, Arterial Blood Base Excess -4.5L, Dann Test , Blood Gas Ventilator Setting NO, Blood Gas Inspired Oxygen 100% 11/06/22 15:54: Urine Color YELLOW, Urine Clarity CLEAR, Urine pH 6.0, Urine Specific [place] 1.020, Urine Protein TRACEH, Urine Glucose (UA) NEGATIVE, Urine Ketones NEGATIVE, Urine Nitrite NEGATIVE, Urine Bilirubin NEGATIVE, Urine Urobilinogen 0.2, Urine Leukocyte Esterase 1+H, Urine RBC (Auto) 3+H, Urine RBC 10-25H, Urine WBC 5-10H, Urine Squamous Epithelial Cells 5-10, Urine Crystals PRESENTH, Urine Calcium Oxalate Crystals FEWH, Urine Amorphous Sediment FEW ANDREW URATESH, Urine Bacteria FEWH, Urine Casts NONE, Urine Hyaline Casts RARE, Urine Mucus LARGEH, Urine Culture Indicated CULTURE PENDING Assessment/Plan Assessment/Plan Assessment/Plan Respiratory failure of undetermined etiology requiring intubation- likely PE Cardiac arrest Central line placed in R femoral vein w/o procedural complications. JM WOODSON DO 11/06/22 2015: History of Present Illness History of Present Illness History of Present Illness Called to ED for central line placement. Patient seen and evaluated in ED. 87 year old male who was having respiratory distress and decreased oxygen saturation. Patient coded in ED and ROSC was obtained. Patient is intubated currently. No family present. Patient with recent left hip replacement. Allergies and Home Medications Allergies Coded Allergies: No Known Drug Allergies (Unverified , 02/12/21) Patient Home Medication List Home Medication List Reviewed: Yes Acetaminophen (Tylenol Arthritis) 650 Mg Tablet.er, 650 MG PO Q6H PRN for ARTHRITIS PAIN, (Reported) Entered as Reported by: CODEY JOYNER on 02/12/21 1219 Ascorbic Acid (Vitamin C) 500 Mg Capsule, 1,000 MG PO DAILY, (Reported) Entered as Reported by: CODEY JOYNER on 02/12/21 1219 Calcium Carb/Magnesium Oxid/D3 (Calcium Magnesium + D Tablet) 1 Each Tablet, 1 EACH PO DAILY, (Reported) Entered as Reported by: CODEY JOYNER on 02/12/211218 Clopidogrel Bisulfate (Clopidogrel) 75 Mg Tablet, 75 MG PO DAILY, (Reported) Entered as Reported by: CANDE WHEELER on 05/01/19 111 Esomeprazole Magnesium (Esomeprazole Magnesium) 40 Mg Capsule.dr, 40 MG PO DAILY, (Reported) Entered as Reported by: CODEY JOYNER on 02/12/21 121 Garlic (Garlic) 1 Each Tablet, 1 EACH PO DAILY, (Reported) Entered as Reported by: CODEY JOYNER on 02/12/21 121 Lisinopril (Lisinopril) 5 Mg Tablet, 5 MG PO 1200, (Reported) Entered as Reported by: CANDE WHEELER on 05/01/19 111 [place]-3 Fatty Acids/Fish Oil ([place] 3 Fish Oil Softgel) 1 Each Capsule.dr, 2 EACH PO DAILY, (Reported) Entered as Reported by: CODEY JOYNER on 02/12/211218 Pravastatin Sodium (Pravastatin Sodium) 20 Mg Tablet, 20 MG PO HS, (Reported) Entered as Reported by: CADNE WHEELER on 05/01/19 111 Tamsulosin HCl (Flomax) 0.4 Mg Cap, 0.4 MG PO HS, (Reported) Entered as Reported by: CODEY JOYNER on 02/12/211218 Thiamine Mononitrate (Vitamin B-1) 100 Mg Tablet, 100 MG PO DAILY, (Reported) Entered as Reported by: CODEY JOYNER on 02/12/211218 Past Qzuawxj-Rpaqwp-Tpnqax Hx Surgeries Surgeries: Orthopedic Reviewed Nursing Assessment Reviewed/Agree w Nursing PMH: Yes Family Medical History Significant Family History: Other Conditions/Hx (Unable to obtain due to patient status) Review of Systems-General ROS-Unable to Obtain: unable to obtain, intubated Physical Exam-General Problems Physical Exam General Appearance: other (intubated, unresponsive) HEENT: normal ENT inspection, other (patient does not open eyes for examination) Neck: supple, normal inspection Respiratory: rhonchi, wheezing Cardiovascular: no JVD, tachycardia Gastrointestinal: soft; No distended Rectal: deferred Genital/Rectal: other (surrounding bruising and scrotum black appears to be from bruising) Extremities: normal inspection, no pedal edema Neurologic/Psychiatric: other (intubated) Skin: cool, other (bruising around left hip incision and across pelvis as noted above), pallor Lymphatic: no adenopathy Assessment/Plan Assessment/Plan Assessment/Plan Respiratory failure of undetermined etiology requiring intubation- likely PE Cardiac arrest Poor venous access Central line placed in R femoral vein w/o procedural complications, and continue medical management. PROCEDURE: Right femoral vein central line placement ultrasound guided. Right groin prepped and draped in sterile fashion. Using u/s the right femoral vein accessed and dark nonpulsatile blood withdrawn. Guidewire was inserted and needle removed. 11 blade scalpel used to make skin incision. Dilator advanced over wire and removed. Triple lumen catheter advanced over wire and wire removed. All ports accessed and flushed without difficulty. Catheter secured with 3-0 silk sutre. Sterile bandage applied. Supervisory-Addendum Brief Verification & Attestation Participated in pt care: history, MDM, physical Personally performed: exam, history, MDM, supervision of care Care discussed with: Medical Student Procedures: n/a Results interpretation: Verified all documentation Verification and Attestation of Medical Student E/M Service A medical student performed and documented this service in my presence. I reviewed and verified all information documented by the medical student and made modifications to such information, when appropriate. I personally performed the physical exam and medical decision making. Jm Woodson, Nov 06, 2022,20:18 ZAN KWOK Nov 06, 2022 18:50 JM WOODSON DO Nov 06, 2022 20:15
== END 2022-11-06 17:00 | disposition expired ==
LOC: EDUNIT# 13:56 → ER 13:58
DX: I46.9 Cardiac arrest, cause unspecified (principal); A41.9 Sepsis, unspecified organism; N17.9 Acute kidney failure, unspecified; J96.90 Respiratory failure, unspecified, unspecified whether with hypoxia or hypercapnia; R79.1 Abnormal coagulation profile; R74.02 Elevation of levels of lactic acid dehydrogenase [LDH]; M25.452 Effusion, left hip; R77.8 Other specified abnormalities of plasma proteins; Z20.822 Contact with and (suspected) exposure to COVID-19; Z99.81 Dependence on supplemental oxygen; Z99.89 Dependence on other enabling machines and devices
CPT/HCPCS: 31500; 36415; 51702; 71045; 80053; 81000; 82805; 83605; 83735; 83880; 84484; 85007; 85027; 85379; 85610; 85730; 87040; 87088; 87636; 93005; 96361; 96374; 99291